=== PATIENT | male | born 1955 | race Caucasian/White ===

== ENCOUNTER 2020-04-03 13:25 | Inpatient (IN) | payer OTHER ==
--- NOTE | 2020-04-03 13:45 | PDOC ---
Rapid Medical Evaluation Time Seen by Provider: 04/03/20 13:40 Medical Evaluation: Allergies Allergy/AdvReac Type Severity Reaction Status Date / Time No Known Allergies Allergy Verified 11/20/15 14:49 04/03/20 13:40 64 year old male HTN, DM, anxiety, CVI, methadone complaining of Left ankle wound with drainage x 2 weeks. Pt banged leg on table 2 weeks ago, area became inflamed with ulceration. No fever, chills, N/V PE: Draining elcer to lateral mal Plan Labs XR Pt to precede to ED for further treatment and care 04/03/20 13:45
--- NOTE | 2020-04-03 14:10 | PDOC ---
History of Present Illness - General Chief Complaint: Wound Stated Complaint: WOUND CARE Time Seen by Provider: 04/03/20 13:40 History Source: Patient Exam Limitations: No Limitations - History of Present Illness Initial Comments: 64M with hx/o HTN, DM, PVD, and methadone use presents to the ED with a wound of left lower leg. He reports bumping a table a 2 weeks ago with development of ulcer 1 week ago. Since then it's become red and drained purulent and clear fluid, and he was concerned of infection. He denied fever, change in strength or sensation, or nausea, vomiting. PCP: Dr. Kinsey PMH: See HPI SH: none Allergies: none Meds: metformin, carvedilol, lisinopril, methadone Soc: neg x3 ROS GENERAL/CONSTITUTIONAL: No fever or chills. No weakness. HEENT: No change in vision. No ear pain or discharge. No sore throat. CARDIOVASCULAR: No chest pain or shortness of breath RESPIRATORY: No cough, wheezing, or hemoptysis. GASTROINTESTINAL: No nausea, vomiting, diarrhea or constipation. GENITOURINARY: No dysuria, frequency, or change in urination. MUSCULOSKELETAL: No joint or muscle swelling or pain. No neck or back pain. SKIN: +leg erythema NEUROLOGIC: No headache, vertigo, loss of consciousness, or change in strength/sensation. ENDOCRINE: No increased thirst. No abnormal weight change HEMATOLOGIC/LYMPHATIC: No anemia, easy bleeding, or history of blood clots. ALLERGIC/IMMUNOLOGIC: No hives or skin allergy. PE GENERAL: Awake, alert, and fully oriented, in no acute distress HEAD: No signs of trauma, normocephalic, atraumatic EYES: PERRLA, EOMI, sclera anicteric, conjunctiva clear ENT: Auricles normal inspection, hearing grossly normal, nares patent, oroph arynx clear without exudates. Moist mucosa NECK: Normal ROM, supple, no lymphadenopathy, JVD, or masses HEART: RRR, normal S1 and S2, no murmurs, rubs or gallops, peripheral pulses normal and equal bilaterally; +2 pitting edema LE bilaterally; 2+ DP LUNGS: No distress, speaks full sentences, clear to auscultation bilaterally ABDOMEN: Soft, nontender, normoactive bowel sounds. No guarding, no rebound. No masses EXTREMITIES: Normal inspection, Normal range of motion, no edema. No clubbing or cyanosis. NEUROLOGICAL: Sensation of left lower leg and foot intact SKIN: venous stasis lower legs bilaterally, left leg erythematous, several small round superficial ulcers with purulence, and surrounding diffuse weeping 04/03/20 15:06 Past History - Medical History Allergies/Adverse Reactions: Allergies Allergy/AdvReac Type Severity Reaction Status Date / Time No Known Allergies Allergy Verified 04/03/20 13:40 Home Medications: Ambulatory Orders Alprazolam [Xanax] 0.5 mg PO PRN PRN 12/15/18 Carvedilol 20 mg PO BID 12/15/18 Citalopram Hydrobromide [Celexa -] 20 mg PO DAILY 12/15/18 Ibuprofen 400 mg PO PRN PRN 12/15/18 Lisinopril 20 mg PO DAILY 12/15/18 Metformin HCl [Glucophage] 500 mg PO BID 12/15/18 Methadone [Dolophine -] 110 mg PO DAILY 12/15/18 Asthma: Yes Diabetes: Yes HTN: Yes - Psycho-Social/Smoking History Smoking History: Never smoked Have you smoked in the past 12 months: No If you are a former smoker, when did you quit?: 2013 Information on smoking cessation initiated: No - Substance Abuse Hx (Audit-C & DAST Scrn) How often the patient has a drink containing alcohol: Never Score: In Men: 4 or > Positive; In Women: 3 or > Positive: 0 Screen Result (Pos requires Nsg. Audit-10AR): Negative In the last yr the pt used illegal drug/Rx for NonMed reason: No Score: Yes response is considered Positive: 0 Screen Result (Positive result requires Nsg. DAST-10): Negative *Physical Exam - Vital Signs Last Vital Signs Temp Pulse Resp BP Pulse Ox 99.3 F 64 16 136/66 96 04/03/20 13:40 04/03/20 13:40 04/03/20 13:40 04/03/20 13:40 04/03/20 13:40 ED Treatment Course - LABORATORY CBC & Chemistry Diagram: 04/03/20 14:20 04/03/20 14:20 Medical Decision Making - Medical Decision Making 64M with hx/o HTN, DM, PVD, and methadone use presents to the ED with a left lower leg ulcers and surrounding erythema. Physical exam revealed venous stasis, a few left leg ulcerations with purulent drainage, extensive erythema beyond affected area of venous stasis. Cellulitis +/- osteomyelitis is high on the differential. Low suspicion for DVT, abscess, or peripheral arterial disease. Bedside ultrasound demonstrated diffuse cobblestoning in LE bilaterally. CBC demonstrated mild leukocytosis at 11.4. CMP unremarkable. Coags unremarkable. Patient was started on IV vancomycin and Zosyn. He was also given IM toradol and tylenol for pain control. Patient will be admitted for management of cellulitis with IV antibiotics. Discharge - Discharge Information Problems reviewed: Yes Clinical Impression/Diagnosis: Cellulitis Qualifiers: Site of cellulitis: extremity Site of cellulitis of extremity: lower extremity Laterality: left Qualified Code(s): L03.116 - Cellulitis of left lower limb Condition: Guarded - Admission Yes - Follow up/Referral Referrals: Mumtaz Kinsey [Primary Care Provider] - - Patient Discharge Instructions - Post Discharge Activity
[2020-04-03 14:39] LABS: BASO % 0.5 % (0-2.0); EOS % 2.3 % (0-4.5); HEMATOCRIT 37.9 % (35.4-49); HEMOGLOBIN 12.5 GM/dL (11.7-16.9); LYMPH % 13.5 % (8-40); MCH 29.4 pg (25.7-33.7); MCHC 32.9 g/dl (32.0-35.9); MEAN CELL VOLUME 89.3 fl (80-96); MEAN PLT VOLUME 7.3 fl (7.5-11.1); MONO % 8.4 % (3.8-10.2); NEUT % 75.3 % (42.8-82.8); PLATELET COUNT 268 K/MM3 (134-434); RBC 4.24 M/mm3 (4.00-5.60); RDW 13.6 % (11.9-15.9); WHITE BLOOD COUNT 11.4 K/mm3 (4.0-10.0)
[2020-04-03 14:47] LABS: INR 1.13 (0.83-1.09); PROTHROMBIN TIME (PATIENT) 13.3 SEC (9.7-13.0)
[2020-04-03 14:49] LABS: ACTIVATED PTT 30.6 SECONDS (25.2-36.5)
[2020-04-03 15:03] LABS: ALBUMIN 3.6 g/dl (3.4-5.0); BILIRUBIN,TOTAL 0.5 mg/dL (0.2-1); BLOOD UREA NITROGEN 10.4 mg/dL (7-18); CALCIUM 8.9 mg/dL (8.5-10.1); CREATININE 0.9 mg/dL (0.55-1.3); POTASSIUM 3.7 mmol/L (3.5-5.1); TOT PROT 7.4 g/dl (6.4-8.2)
[2020-04-03] MEDS ORDERED: PIPERACILLIN/TAZOB 4.5 GM 4.5 GM in DEXTROSE 5%-WATER 100 ML IVPB ONE (15:26)
[2020-04-03] MEDS ORDERED: VANCOMYCIN 1 GM in D5W (PRE-DOCKED) 1,000 MG/250 ML IVPB ONE (15:27)
--- NOTE | 2020-04-03 15:36 | PDOC ---
Documentation entered by Becca Deras SCRIBE, acting as scribe for Augie Espinal MD. Augie Espinal MD: This documentation has been prepared by the Augusta do Xhesika, SCRIBE, under my direction and personally reviewed by me in its entirety. I confirm that the documentation accurately reflects all work, treatment, procedures, and medical decision making performed by me. Attending Attestation - Resident Resident Name: Erik Prieto - ED Attending Attestation I have performed the following: I have examined & evaluated the patient, The case was reviewed & discussed with the resident, I agree w/resident's findings & plan, Exceptions are as noted - HPI HPI: 04/03/20 14:10 The patient is a 64 year old male with a PMH of HTN, DM, anxiety, CVI, methadone who presents to the ED with L leg wound x2 weeks. Pt states he banged leg on table 2 weeks ago, area became inflamed with ulceration x1week ago. The patient denies chest pain, shortness of breath, and dizziness. Denies fever, chills, cough, nausea, vomiting, and constipation. Denies dysuria, frequency, urgency and hematuria. Allergy: NKDA Social: Denies alcohol, cigarette or drug use. PCP: Dr. Kinsey - Physicial Exam PE: 04/03/20 15:35 Vitals: Triage Vital signs reviewed General Appearance: No acute distress, well nourished well developed, Head: Atraumatic, Cardiac: Regular rate and rhythym, no murmurs, no rubs, no gallops, Lungs: Clear to auscultation bilateral, good air movement bilaterally, Abdomen: Soft, non distended, normal bowel sounds, non tender to palpation Extremities: Full range of motion to all extremities, no cyanosis, clubbing, or edema Skin: Weeping cellulitis to left lower extremity right lower extremity with chronic vascular changes Neuro: , strength intact to all extremities, sensation intact to all extremities, Psych: Normal mood, normal affect - Medical Decision Making 04/03/20 15:36 Lower extremity cellulitis diabetic patient will admit for IV antibiotics given extent of disease EKG performed at 1530 demonstrates normal sinus rhythm no ST elevations or T wave inversions Interpreted by me. Discharge - Discharge Information Problems reviewed: Yes Clinical Impression/Diagnosis: Cellulitis Condition: Guarded - Follow up/Referral - Patient Discharge Instructions - Post Discharge Activity
[2020-04-03] MEDS ORDERED: KETOROLAC TROMETHAMINE 60 MG/2 ML VIAL IM ONE (16:16)
[2020-04-03] MEDS ORDERED: ACETAMINOPHEN 325 MG TABLET (FP) PO ONE (16:17)
--- NOTE | 2020-04-03 16:28 | PN ---
Teaching Attending Note Name of Resident: Robert Duffy ATTENDING PHYSICIAN STATEMENT I saw and evaluated the patient. I reviewed the resident's note and discussed the case with the resident. I agree with the resident's findings and plan as documented. SUBJECTIVE: Morbidly obese 64 year old male with known history of DM type 2, PVD, on metha done program (110 mg/ day) who is presenting with 2 day history of severe pain of the LLE. He reports bumping left foot against furniture about 2 weeks ago. He sustained a small wound with increasing erythema, followed by bullous lesions which ruptured over time. There is evidence of drainage and pain became worse prompting him to go to the ED. 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 Diminished sensation bilateral distal lower ext ASSESSMENT AND PLAN: 1. Infected lower extremity wound with cellulitis rule out deep soft tissue infection 2. DM 2 3. morbid obesity 4. PVD 5. Opioid (methadone) dependent 6. DVT prophylaxis - antibiotics - ID and surgery consultation - CT lower ext - culture - confirm methadone dosage at [facility]. Last dose this am -DVT prophylaxis DW Dr Duffy and agree with management, plans of care
[2020-04-03] MEDS ORDERED: ACETAMINOPHEN 325 MG TABLET (FP) ONE (16:47)
[2020-04-03] MEDS ORDERED: VANCOMYCIN 1 GRAM (PRE-DOCKED) 1,000 MG/250 ML BAG IVPB ONE (16:47)
[2020-04-03] MEDS ORDERED: KETOROLAC TROMETHAMINE 60 MG/2 ML VIAL ONE (16:47)
[2020-04-03] MEDS ORDERED: PIPERACILLIN/TAZOB 4.5 GM 4.5 GM/100 ML BAG IVPB ONE (16:47)
[2020-04-03] MEDS: SODIUM CHLORIDE 1,000 ML IV SCH (17:15)
[2020-04-03] MEDS ORDERED: LISINOPRIL 20 MG TABLET (FP) ONE (17:18)
[2020-04-03] MEDS: LISINOPRIL 20 MG TABLET (FP) PO SCH (17:23)
--- NOTE | 2020-04-03 18:51 | HP ---
CHIEF COMPLAINT: left leg pain PCP: Dr. Kinsey Vascular: Dr. Gonzalez Wound Care: Dr. Cordova HISTORY OF PRESENT ILLNESS: 64 y/o M, pmh of HTN, DM, PVD, substance abuse/Heroin-Nasal on methadone, presents to the ED c/o of left leg pain, skin changes, erythema, clear purulent discharge of 2 weeks duration that started off as a mild skin changes and worsened since onset. Pt reports that he has had chronic venous changes of the leg, but this is different and is associated with severe pain and tenderness. Pt reports that he used to follow up with Dr. 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 He denies f/c/n/v/d/sob/chest pain, numbness and tingling, loss strength, headaches. ER course was notable for: (1) vanc and zosyn given (2) (3) Recent Travel: none PAST MEDICAL HISTORY: HTN, DM, PVD, substance abuse/Heroin-Nasal on methadone PAST SURGICAL HISTORY: none FHx: Father : heart disease, suspicious mass in the abdomen- unknown dx Social History: Smoking:denies Alcohol:denies Drugs: heroin user on methadone Allergies No Known Allergies Allergy (Verified 04/03/20 13:40) HOME MEDICATIONS: Home Medications Medication Instructions Recorded Alprazolam [Xanax] 0.5 mg PO PRN PRN 12/15/18 Carvedilol 20 mg PO BID 12/15/18 Citalopram Hydrobromide [Celexa -] 20 mg PO DAILY 12/15/18 Ibuprofen 400 mg PO PRN PRN 12/15/18 Lisinopril 20 mg PO DAILY 12/15/18 Metformin HCl [Glucophage] 500 mg PO BID 12/15/18 Methadone [Dolophine -] 110 mg PO DAILY 12/15/18 Carvedilol [Coreg -] 12.5 mg PO BID 04/03/20 Furosemide [Lasix] 20 mg PO DAILY 04/03/20 REVIEW OF SYSTEMS CONSTITUTIONAL: Absent: fever, chills, diaphoresis, generalized weakness, malaise HEENT: Absent: rhinorrhea, nasal congestion Absent: chest pain, syncope, palpitations, peripheral edema RESPIRATORY: Absent: cough, shortness of breath, dyspnea with exertion, orthopnea, wheezing, stridor, hemoptysis GASTROINTESTINAL: Absent: abdominal pain, abdominal distension, nausea, vomiting, diarrhea, constipation GENITOURINARY: Absent: dysuria, frequency, urgency, genital pain SKIN: Admits: Redness of the left leg Absent: rash, itching, pallor HEMATOLOGIC/IMMUNOLOGIC: Absent: easy bleeding, easy bruising, lymphadenopathy, frequent infections NEUROLOGIC: Absent: headache, focal weakness or paresthesias, dizziness, unsteady gait, seizure, mental status changes, bladder or bowel incontinence PSYCHIATRIC: Absent: anxiety, depression, suicidal or homicidal ideation, hallucinations. PHYSICAL EXAMINATION Vital Signs - 24 hr 04/03/20 04/03/20 13:40 17:31 Temperature 99.3 F 99.0 F Pulse Rate 64 Pulse Rate [ 65 Apical] Respiratory 16 19 Rate Blood Pressure 136/66 Blood Pressure 129/68 [Right Arm] O2 Sat by Pulse 96 100 Oximetry (%) GENERAL: Awake, alert, and fully oriented, in no acute distress. EYES: Pupils equal, round and reactive to light, extraocular movements intact, No lid lag. EARS, NOSE, THROAT: Moist mucous membranes. NECK: Normal range of motion, supple without lymphadenopathy, JVD, or masses. LUNGS: Breath sounds equal, clear to auscultation bilaterally. No wheezes, and no crackles. HEART: Regular rate and rhythm, normal S1 and S2 without murmur, rub or gallop. ABDOMEN: Soft, nontender, not distended, normoactive bowel sounds, no guarding, no rebound, no masses. MUSCULOSKELETAL: Normal range of motion at all joints. LOWER EXTREMITIES: 2+ pulses, warm, well-perfused. Left lower extremity with rubor, erythema, tenderness, extending from ankle to below the knee, with skin break down, blistering and clear discharge. NEUROLOGICAL: Normal speech. Normal gait. PSYCHIATRIC: Cooperative. Good eye contact. Appropriate mood and affect. Laboratory Results - last 24 hr 04/03/20 04/03/20 04/03/20 14:20 14:20 14:20 WBC 11.4 H RBC 4.24 Hgb 12.5 Hct 37.9 MCV 89.3 MCH 29.4 MCHC 32.9 RDW 13.6 Plt Count 268 D MPV 7.3 L D Absolute Neuts (auto) 8.6 H Neutrophils % 75.3 Lymphocytes % 13.5 Monocytes % 8.4 Eosinophils % 2.3 Basophils % 0.5 Nucleated RBC % 0 PT with INR 13.30 H INR 1.13 H PTT (Actin FS) 30.6 Sodium 141 Potassium 3.7 Chloride 104 Carbon Dioxide 30 Anion Gap 6 L BUN 10.4 Creatinine 0.9 Est GFR (CKD-EPI)AfAm 105.72 Est GFR (CKD-EPI)NonAf 91.22 POC Glucometer Random Glucose 141 H Lactic Acid Calcium 8.9 Total Bilirubin 0.5 AST 17 ALT 22 Alkaline Phosphatase 64 Total Protein 7.4 Albumin 3.6 Beta-Hydroxybutyrate 0.5 ASSESSMENT/PLAN: 64 y/o M, pmh of HTN, DM, PVD, substance abuse/Heroin-Nasal on methadone, prese nts to the ED c/o of left leg pain, skin changes, erythema, clear purulent discharge of 2 weeks duration that started off as a mild skin changes and worsened since onset admitted for Cellulitis of the the LLE #Cellulitis of the the LLE MARA pain/tenderness/erythema due to diabetes, PVD, inadequate follow up CT LE ordered to r/o deep tissue infection in setting of leukocytosis ankle X rays, LLE x ray LDH f/u CXR s/p Vanc and Zosyn IVF Consulted Dr. Gonzalez/ vascular Consulted ID- Dr. Smart Consider consult for podiatry as pt needs foot care/ Dr. Cordova Pain control with Tylenol and motrin #Substance abuse Will need to verify Methadone, unable to do so Methadone 110 mg #PVD vascular consulted stable #HTN cont home meds lisinopril + Coreg #DM BGM ISS #Obesity with LE edema lasix 20- will need to reconcile with pharmacy attempted to call, unable to reach due to pharmacy being closed #DVT ppx hep sq FEN monitor lytes IVF Dm/Sodium diet Disp: f/u ID, cont abx in the morning, f/u vascular Visit type - Emergency Visit Emergency Visit: Yes ED Registration Date: 04/03/20 Care time: The patient presented to the Emergency Department on the above date and was hospitalized for further evaluation of their emergent condition. - New Patient This patient is new to me today: Yes Date on this admission: 04/11/20 - Critical Care Critical Care patient: No ATTENDING PHYSICIAN STATEMENT I saw and evaluated the patient. I reviewed the resident's note and discussed the case with the resident. I agree with the resident's findings and plan as documented. SUBJECTIVE: OBJECTIVE: ASSESSMENT AND PLAN:
[2020-04-03 23:47] VITALS: BMI 42.5
[2020-04-04] MEDS: INSULIN SLIDING SCALE (NOVOLOG) 1 VIAL SQ SCH ×5 (00:27→21:50)
[2020-04-04] MEDS: CARVEDILOL 12.5 MG TABLET (FP) PO SCH ×3 (00:27→21:53)
[2020-04-04] MEDS: HEPARIN NA (PORCINE) 5,000 UNITS/ML 1ML VIAL SQ SCH ×4 (00:27→21:51)
[2020-04-04 07:45] LABS: BASO % 0.6 % (0-2.0); EOS % 3.8 % (0-4.5); HEMATOCRIT 37.5 % (35.4-49); HEMOGLOBIN 12.2 GM/dL (11.7-16.9); LYMPH % 16.7 % (8-40); MCH 28.9 pg (25.7-33.7); MCHC 32.4 g/dl (32.0-35.9); MEAN CELL VOLUME 89.2 fl (80-96); MEAN PLT VOLUME 7.6 fl (7.5-11.1); MONO % 11.1 % (3.8-10.2); NEUT % 67.8 % (42.8-82.8); PLATELET COUNT 234 K/MM3 (134-434); RDW 13.4 % (11.9-15.9); WHITE BLOOD COUNT 9.6 K/mm3 (4.0-10.0)
[2020-04-04 08:12] LABS: ALBUMIN 3.1 g/dl (3.4-5.0); BILIRUBIN,TOTAL 0.7 mg/dL (0.2-1); BLOOD UREA NITROGEN 9.4 mg/dL (7-18); CALCIUM 8.3 mg/dL (8.5-10.1); CREATININE 0.8 mg/dL (0.55-1.3); MAGNESIUM 2.5 mg/dL (1.8-2.4); PHOSPHOROUS 3.7 mg/dL (2.5-4.9); POTASSIUM 4.2 mmol/L (3.5-5.1); TOT PROT 6.4 g/dl (6.4-8.2)
[2020-04-04] MEDS ORDERED: METHADONE HCL 10 MG TABLET PO ONE (08:54)
[2020-04-04] MEDS ORDERED: METHADONE HCL 10 MG TABLET ONE (09:23)
[2020-04-04] MEDS ORDERED: METHADONE HCL 40 MG DISPERSABLE TABLET ONE (09:23)
[2020-04-04] MEDS: LISINOPRIL 20 MG TABLET (FP) PO SCH (09:34)
[2020-04-04] MEDS: METHADONE 80 MG, METHADONE 30 MG PO SCH (09:34)
--- NOTE | 2020-04-04 11:17 | EKG ---
Test Reason : Blood Pressure : / mmHG Vent. Rate : 056 BPM Atrial Rate : 056 BPM P-R Int : 212 ms QRS Dur : 100 ms QT Int : 468 ms P-R-T Axes : 011 -01 004 degrees QTc Int : 451 ms SINUS BRADYCARDIA WITH 1ST DEGREE A-V BLOCK MINIMAL VOLTAGE CRITERIA FOR LVH, MAY BE NORMAL VARIANT NO PREVIOUS ECGS AVAILABLE Confirmed by MYRON ORTIZ MD ([id number]) on 04/04/2020 11:16:55 AM Referred By: Confirmed By:MYRON ORTIZ MD
--- NOTE | 2020-04-04 11:24 | CON.ID ---
Consult Consult Specialty:: infectious diseases Referred by:: Reason for Consultation:: cellulitis of the leg - History of Present Illness Chief Complaint: swelling and cellulitis of the leg History of Present Illness: 64M with hx/o HTN, DM, PVD, and methadone use presents to the ED with a wound of left lower leg. He reports bumping a table a 2 weeks ago with development of ulcer 1 week ago. Since then it's become red and drained purulent and clear fluid, and he was concerned of infection. He denied fever, change in strength or sensation, or nausea, vomiting. - History Source History Provided By: Patient Limitations to Obtaining History: No Limitations - Smoking History Smoking history: Never smoked Have you smoked in the past 12 months: No If you are a former smoker, when did you quit?: 2013 Home Medications - Allergies Allergies/Adverse Reactions: Allergies Allergy/AdvReac Type Severity Reaction Status Date / Time No Known Allergies Allergy Verified 04/03/20 13:40 - Home Medications Home Medications: Ambulatory Orders Alprazolam [Xanax] 0.5 mg PO PRN PRN 12/15/18 Carvedilol 12.5 mg PO BID 12/15/18 Citalopram Hydrobromide [Celexa -] 20 mg PO DAILY 12/15/18 Ibuprofen 400 mg PO PRN PRN 12/15/18 Lisinopril 20 mg PO DAILY 12/15/18 Metformin HCl [Glucophage] 500 mg PO BID 12/15/18 Methadone [Dolophine -] 110 mg PO DAILY 12/15/18 Carvedilol [Coreg -] 12.5 mg PO BID 04/03/20 Furosemide [Lasix] 20 mg PO DAILY 04/03/20 Review of Systems - Review of Systems Constitutional: reports: No Symptoms Eyes: reports: No Symptoms HENT: reports: No Symptoms Neck: reports: No Symptoms Cardiovascular: reports: No Symptoms Respiratory: reports: No Symptoms Gastrointestinal: reports: No Symptoms Genitourinary: reports: No Symptoms Musculoskeletal: reports: Muscle Pain Integumentary: reports: Change in Color, Erythema, Other (discharge) Neurological: reports: No Symptoms Endocrine: reports: No Symptoms Hematology/Lymphatic: reports: No Symptoms Psychiatric: reports: No Symptoms Physical Exam Vital Signs: Vital Signs Temperature 97.9 F 04/04/20 05:55 Pulse Rate 58 L 04/04/20 05:55 Respiratory Rate 20 04/04/20 05:55 Blood Pressure 146/76 04/04/20 05:55 O2 Sat by Pulse Oximetry (%) 97 04/04/20 05:55 Constitutional: Yes: Well Nourished, Calm, Obese Eyes: Yes: Conjunctiva Clear HENT: Yes: Atraumatic, Normocephalic Neck: Yes: Supple, Trachea Midline Cardiovascular: Yes: Regular Rate and Rhythm Respiratory: Yes: Regular, CTA Bilaterally Gastrointestinal: Yes: Normal Bowel Sounds, Soft Musculoskeletal: Yes: WNL Extremities: Yes: Erythema, Other Integumentary: Yes: Erythema, Other Wound/Incision: Yes: Dressing Dry and Intact Neurological: Yes: Alert, Oriented Labs: CBC, BMP 04/04/20 06:45 04/04/20 06:45 Imaging - Results Chest X-ray: Report Reviewed, Image Reviewed X-ray: Report Reviewed, Image Reviewed Assessment/Plan this obese patient coming in with cellulitis of the leg post injury i ahave started patient on zosyn if drainage continues please send cx from the wound continue wound care consider wound care to get involved
--- NOTE | 2020-04-04 11:40 | PN ---
Physical Exam: SUBJECTIVE: Patient seen and examined at the bedside. denies leg pain. OBJECTIVE: wound culture ordered ---- Patient is a 64 year male with a significant past medical history of HTN, DM, PVD, substance abuse/Heroin-Nasal on methadone, presents to the ED c/o of left leg pain, skin changes, erythema, clear purulent discharge of 2 weeks duration that started off as a mild skin changes and worsened since onset. Patient is being treated for left leg celluitis. a culture of this wound has been sent. blood cultures pending. covid status: pending Vital Signs Period Temp Pulse Resp BP Sys/[place] Pulse Ox Last 24 Hr 97.9 F-99.3 F 58-65 16-20 123-146/66-76 95-100 GENERAL: The patient is awake, alert, and fully oriented, in no acute distress. disheveled HEAD: Normal with no signs of trauma. EYES: PERRL, extraocular movements intact, sclera anicteric, conjunctiva clear. No ptosis. ENT: Ears normal, nares patent, oropharynx clear without exudates, moist mucous membranes. NECK: Trachea midline, full range of motion, supple. LUNGS: Breath sounds equal, clear to auscultation bilaterally HEART: Regular rate and rhythm ABDOMEN: obese abdomen, soft EXTREMITIES: hyperpigmentation of right lower ext. left lower ext with c/d/i dressing NEUROLOGICAL: Normal speech, gait not observed. PSYCH: Normal mood, normal affect. Laboratory Results - last 24 hr 04/03/20 04/03/20 04/03/20 14:20 14:20 14:20 WBC 11.4 H RBC 4.24 Hgb 12.5 Hct 37.9 MCV 89.3 MCH 29.4 MCHC 32.9 RDW 13.6 Plt Count 268 D MPV 7.3 L D Absolute Neuts (auto) 8.6 H Neutrophils % 75.3 Lymphocytes % 13.5 Monocytes % 8.4 Eosinophils % 2.3 Basophils % 0.5 Nucleated RBC % 0 PT with INR 13.30 H INR 1.13 H PTT (Actin FS) 30.6 Sodium 141 Potassium 3.7 Chloride 104 Carbon Dioxide 30 Anion Gap 6 L BUN 10.4 Creatinine 0.9 Est GFR (CKD-EPI)AfAm 105.72 Est GFR (CKD-EPI)NonAf 91.22 POC Glucometer Random Glucose 141 H Lactic Acid Calcium 8.9 Phosphorus Magnesium Total Bilirubin 0.5 AST 17 ALT 22 Alkaline Phosphatase 64 Total Protein 7.4 Albumin 3.6 Beta-Hydroxybutyrate 0.5 04/03/20 04/03/20 04/04/20 17:15 17:21 00:08 WBC RBC Hgb Hct MCV MCH MCHC RDW Plt Count MPV Absolute Neuts (auto) Neutrophils % Lymphocytes % Monocytes % Eosinophils % Basophils % Nucleated RBC % PT with INR INR PTT (Actin FS) Sodium Potassium Chloride Carbon Dioxide Anion Gap BUN Creatinine Est GFR (CKD-EPI)AfAm Est GFR (CKD-EPI)NonAf POC Glucometer 84 87 Random Glucose Lactic Acid 1.1 Calcium Phosphorus Magnesium Total Bilirubin AST ALT Alkaline Phosphatase Total Protein Albumin Beta-Hydroxybutyrate 04/04/20 04/04/20 04/04/20 05:27 06:45 06:45 WBC 9.6 RBC 4.20 Hgb 12.2 Hct 37.5 MCV 89.2 MCH 28.9 MCHC 32.4 RDW 13.4 Plt Count 234 MPV 7.6 Absolute Neuts (auto) 6.5 Neutrophils % 67.8 Lymphocytes % 16.7 D Monocytes % 11.1 H Eosinophils % 3.8 Basophils % 0.6 Nucleated RBC % 0 PT with INR INR PTT (Actin FS) Sodium 141 Potassium 4.2 Chloride 105 Carbon Dioxide 30 Anion Gap 6 L BUN 9.4 Creatinine 0.8 Est GFR (CKD-EPI)AfAm 110.96 Est GFR (CKD-EPI)NonAf 95.74 POC Glucometer 106 Random Glucose 110 H Lactic Acid Calcium 8.3 L Phosphorus 3.7 Magnesium 2.5 H Total Bilirubin 0.7 AST 13 L ALT 21 Alkaline Phosphatase 55 Total Protein 6.4 Albumin 3.1 L Beta-Hydroxybutyrate Active Medications Generic Name Dose Route Start Last Admin Trade Name Freq PRN Reason Stop Dose Admin Carvedilol 12.5 mg 04/03/20 22:00 04/04/20 09:34 Coreg - PO 12.5 mg BID JACQUELYN Administration Heparin Sodium (Porcine) 5,000 unit 04/03/20 22:00 04/04/20 05:37 Heparin - SQ Not Given TID JACQUELYN Sodium Chloride 1,000 mls @ 42 mls/hr 04/03/20 17:00 04/03/20 17:15 Normal Saline - IV 42 mls/hr ASDIR JACQUELYN Administration Piperacillin Sod/Tazobactam 50 mls @ 100 mls/hr 04/04/20 11:45 Sod 3.375 gm/ Dextrose IVPB Q8H-IV JACQUELYN Protocol Insulin Aspart 1 vial 04/03/20 22:00 04/04/20 11:37 Novolog Vial Sliding Scale - SQ Not Given ACHS JACQUELYN Protocol Lisinopril 20 mg 04/03/20 17:15 04/04/20 09:34 Prinivil PO 20 mg DAILY JACQUELYN Administration Methadone HCl 80 mg/ Methadone 110 mg 04/04/20 09:00 04/04/20 09:34 HCl 30 mg PO 110 mg DAILY@0600 JACQUELYN Administration ASSESSMENT/PLAN: Problem List - Problems (1) Cellulitis Assessment/Plan: blood cultures pending on zosyn wound culture sent/pending monitor drainage daily dressing lower ext ct noted Code(s): L03.90 - CELLULITIS, UNSPECIFIED Qualifiers: Site of cellulitis: extremity Site of cellulitis of extremity: lower extremity Laterality: left Qualified Code(s): L03.116 - Cellulitis of left lower limb (2) Diabetes Assessment/Plan: monitor bgms, on novolog sliding scale, hmga1c pending Code(s): E11.9 - TYPE 2 DIABETES MELLITUS WITHOUT COMPLICATIONS (3) Methadone dependence Assessment/Plan: continue methadone maintenance. 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 - New Patient This patient is new to me today: Yes Date on this admission: 04/04/20 - Critical Care Critical Care patient: No - Discharge Referral Referred to [facility] No
--- NOTE | 2020-04-04 12:24 | CONSULT ---
- Consultation REQUESTING PROVIDER: CONSULT REQUEST: We have been asked to surgically evaluate this patient for LLE cellulitis and wounds PCP:Kj Frey NP HISTORY OF PRESENT ILLNESS: 64yo M with h/o LLE cellulitis and venous stasis wounds was consulted to Vascular for evaluation. Pt states he has a long history of LLE wounds and was going to [facility] wound care center until a few months ago. Pt states that he noticed his leg was draining a couple weeks ago, but started to get red and tender a few days ago so he went to the hospital. Pt denies fever, chills, n/v. PMHx: HTN, DM, PVD, substance abuse/Heroin-Nasal on methadone Home Medications Medication Instructions Recorded Alprazolam [Xanax] 0.5 mg PO PRN PRN 12/15/18 Carvedilol 12.5 mg PO BID 12/15/18 Citalopram Hydrobromide [Celexa -] 20 mg PO DAILY 12/15/18 Ibuprofen 400 mg PO PRN PRN 12/15/18 Lisinopril 20 mg PO DAILY 12/15/18 Metformin HCl [Glucophage] 500 mg PO BID 12/15/18 Methadone [Dolophine -] 110 mg PO DAILY 12/15/18 Carvedilol [Coreg -] 12.5 mg PO BID 04/03/20 Furosemide [Lasix] 20 mg PO DAILY 04/03/20 Allergies Allergy/AdvReac Type Severity Reaction Status Date / Time No Known Allergies Allergy Verified 04/03/20 13:40 REVIEW OF SYSTEMS: CONSTITUTIONAL: Absent: fever, chills, diaphoresis, generalized weakness, malaise, loss of appetite, weight change PHYSICAL EXAM: GENERAL: Awake, alert, and fully oriented, in no acute distress. HEAD: Normal with no signs of trauma. EYES: PERRL, sclera anicteric, conjunctiva clear. NECK: Normal ROM, supple without lymphadenopathy, JVD, or masses. LUNGS: breathing comfortably, No accessory muscle use. HEART: Regular rate and rhythm. MUSCULOSKELETAL: Normal ROM at all joints. No bony deformities or tenderness. No CVA tenderness. UPPER EXTREMITIES: warm, well-perfused. No cyanosis. No peripheral edema. LOWER EXTREMITIES: 2+ pulses, warm, well-perfused. No calf tenderness. +1 peripheral edema. LLE shows multiple superficial scattered ulcers circumferential with erythema and serous drainage. NEUROLOGICAL: Normal speech, gait not observed. PSYCH: Cooperative. Good eye contact. Appropriate mood and affect. SKIN: Warm, dry, normal turgor, no rashes or lesions noted. Vital Signs Temperature 97.9 F 04/04/20 05:55 Pulse Rate 58 L 04/04/20 05:55 Respiratory Rate 20 04/04/20 05:55 Blood Pressure 146/76 04/04/20 05:55 O2 Sat by Pulse Oximetry (%) 97 04/04/20 05:55 Lab Results WBC 9.6 K/mm3 (4.0-10.0) 04/04/20 06:45 RBC 4.20 M/mm3 (4.00-5.60) 04/04/20 06:45 Hgb 12.2 GM/dL (11.7-16.9) 04/04/20 06:45 Hct 37.5 % (35.4-49) 04/04/20 06:45 MCV 89.2 fl (80-96) 04/04/20 06:45 MCHC 32.4 g/dl (32.0-35.9) 04/04/20 06:45 RDW 13.4 % (11.9-15.9) 04/04/20 06:45 Plt Count 234 K/MM3 (134-434) 04/04/20 06:45 INR 1.13 (0.83-1.09) H 04/03/20 14:20 Sodium 141 mmol/L (136-145) 04/04/20 06:45 Potassium 4.2 mmol/L (3.5-5.1) 04/04/20 06:45 Chloride 105 mmol/L (98-107) 04/04/20 06:45 Carbon Dioxide 30 mmol/L (21-32) 04/04/20 06:45 Anion Gap 6 MMOL/L (8-16) L 04/04/20 06:45 BUN 9.4 mg/dL (7-18) 04/04/20 06:45 Creatinine 0.8 mg/dL (0.55-1.3) 04/04/20 06:45 Random Glucose 110 mg/dL (74-106) H 04/04/20 06:45 Calcium 8.3 mg/dL (8.5-10.1) L 04/04/20 06:45 Problem List - Problems (1) Cellulitis Assessment/Plan: Cellulitis Plan -daily dressing changes with Ca aginate and kerlex -Continue antibiotics per ID/medical team -Elevate the lower extremity above the level of the heart at all times while at rest -Bilateral compression with jillian wraps once cellulitis has receded (wrap from metacarpal heads to below knee) -[place]ome[place] soaks QD (astringent for pruritus) -Apply Lac hydrin daily (for dry scaly skin) Code(s): L03.90 - CELLULITIS, UNSPECIFIED Qualifiers: Site of cellulitis: extremity Site of cellulitis of extremity: lower extremity Laterality: left Qualified Code(s): L03.116 - Cellulitis of left lower limb
[2020-04-04] MEDS ORDERED: PIPERACILLIN/TAZOBACTAM 3.375 GM VIAL IVPB ONE ×2 (12:52→18:21)
[2020-04-04] MEDS ORDERED: DEXTROSE 5%-WATER - 50 ML IVPB ONE ×2 (12:52→18:22)
[2020-04-04] MEDS: PIPERACILLIN/TAZOB 3.375 GM 3.375 GM in DEXTROSE 5%-WATER - 50 ML IVPB SCH ×2 (13:20→18:29)
[2020-04-04] MEDS: SODIUM CHLORIDE 1,000 ML IV SCH (21:50)
[2020-04-05] MEDS ORDERED: PIPERACILLIN/TAZOBACTAM 3.375 GM VIAL IVPB ONE ×3 (01:08→17:05)
[2020-04-05] MEDS ORDERED: DEXTROSE 5%-WATER - 50 ML IVPB ONE ×3 (01:08→17:05)
[2020-04-05] MEDS: PIPERACILLIN/TAZOB 3.375 GM 3.375 GM in DEXTROSE 5%-WATER - 50 ML IVPB SCH ×3 (02:00→18:15)
[2020-04-05] MEDS ORDERED: METHADONE HCL 10 MG TABLET ONE (05:17)
[2020-04-05] MEDS ORDERED: METHADONE HCL 40 MG DISPERSABLE TABLET ONE (05:17)
[2020-04-05] MEDS: METHADONE 80 MG, METHADONE 30 MG PO SCH (05:42)
[2020-04-05] MEDS: HEPARIN NA (PORCINE) 5,000 UNITS/ML 1ML VIAL SQ SCH ×3 (05:42→21:37)
[2020-04-05] MEDS ORDERED: METHADONE HCL 10 MG TABLET PO SCH (06:00)
[2020-04-05] MEDS: INSULIN SLIDING SCALE (NOVOLOG) 1 VIAL SQ SCH ×4 (06:03→21:37)
[2020-04-05 08:27] LABS: BASO % 0.2 % (0-2.0); EOS % 3.2 % (0-4.5); HEMATOCRIT 39.3 % (35.4-49); MCH 29.7 pg (25.7-33.7); MEAN CELL VOLUME 89.8 fl (80-96); MEAN PLT VOLUME 8.1 fl (7.5-11.1); MONO % 9.8 % (3.8-10.2); NEUT % 66.8 % (42.8-82.8); PLATELET COUNT 256 K/MM3 (134-434); RBC 4.38 M/mm3 (4.00-5.60); RDW 13.6 % (11.9-15.9); WHITE BLOOD COUNT 8.8 K/mm3 (4.0-10.0)
--- NOTE | 2020-04-05 08:41 | PN ---
Progress Note, Physician Chief Complaint: doing well, nad , pain is significantly decreased - Current Medication List Current Medications: Active Medications Carvedilol (Coreg -) 12.5 mg PO BID [facility] Last Admin: 04/04/20 21:53 Dose: Not Given Documented by: Heparin Sodium (Porcine) (Heparin -) 5,000 unit SQ TID [facility] Last Admin: 04/05/20 05:42 Dose: 5,000 unit Documented by: Sodium Chloride (Normal Saline -) 1,000 mls @ 42 mls/hr IV ASDIR [facility] Last Admin: 04/04/20 21:50 Dose: 42 mls/hr Documented by: Piperacillin Sod/Tazobactam (Sod 3.375 gm/ Dextrose) 50 mls @ 100 mls/hr IVPB Q8H-IV [facility]; Protocol Last Admin: 04/05/20 02:00 Dose: 100 mls/hr Documented by: Insulin Aspart (Novolog Vial Sliding Scale -) 1 vial SQ ACHS [facility]; Protocol Last Admin: 04/05/20 06:03 Dose: Not Given Documented by: Lisinopril (Prinivil) 20 mg PO DAILY [facility] Last Admin: 04/04/20 09:34 Dose: 20 mg Documented by: Methadone HCl 80 mg/ Methadone (HCl 30 mg) 110 mg PO DAILY@0600 [facility] Last Admin: 04/05/20 05:42 Dose: 110 mg Documented by: - Objective Vital Signs: Vital Signs Temperature 98.5 F 04/05/20 05:30 Pulse Rate 62 04/05/20 05:30 Respiratory Rate 18 04/05/20 05:30 Blood Pressure 150/80 04/05/20 05:30 O2 Sat by Pulse Oximetry (%) 96 04/05/20 05:30 Constitutional: Yes: Well Nourished, No Distress, Calm Eyes: Yes: Conjunctiva Clear, EOM Intact HENT: Yes: Atraumatic, Normocephalic Neck: Yes: Supple, Trachea Midline Cardiovascular: Yes: Regular Rate and Rhythm Respiratory: Yes: Regular, CTA Bilaterally Gastrointestinal: Yes: Normal Bowel Sounds, Soft Extremities: Yes: Other ( hyperpigmentation of right lower ext. left lower ext with c/d/i dressing) Edema: LLE: Trace, RLE: Trace Neurological: Yes: WNL, Alert, Oriented Labs: CBC, BMP 04/05/20 08:05 INR, PTT INR 1.13 (0.83-1.09) H 04/03/20 14:20 Impression/Plan Impression/Plan: - Problems (1) CellulitisLLE Assessment/Plan: blood cultures negative, woind c&S pending on zosyn monitor drainage daily dressing (2) Diabetes Assessment/Plan: monitor bgms, on novolog sliding scale, hmga1c 7.1 continue current managaement, (3) Methadone dependence Assessment/Plan: continue methadone maintenance. (4) Morbid obesity needs low calorie diet and lifestyle modification (5) DVT prophylaxis Assessment/Plan: heparin tid Visit type - Emergency Visit Emergency Visit: No - New Patient This patient is new to me today: Yes Date on this admission: 04/05/20 - Critical Care Critical Care patient: No - Discharge Referral Referred to [facility] Med [facility].C.: No Labs Lab Results: CBCD WBC 8.8 K/mm3 (4.0-10.0) 04/05/20 08:05 RBC 4.38 M/mm3 (4.00-5.60) 04/05/20 08:05 Hgb 13.0 GM/dL (11.7-16.9) 04/05/20 08:05 Hct 39.3 % (35.4-49) 04/05/20 08:05 MCV 89.8 fl (80-96) 04/05/20 08:05 MCHC 33.0 g/dl (32.0-35.9) 04/05/20 08:05 RDW 13.6 % (11.9-15.9) 04/05/20 08:05 Plt Count 256 K/MM3 (134-434) 04/05/20 08:05 MPV 8.1 fl (7.5-11.1) 04/05/20 08:05 CMP Sodium 140 mmol/L (136-145) 04/05/20 08:05 Potassium 4.0 mmol/L (3.5-5.1) 04/05/20 08:05 Chloride 106 mmol/L (98-107) 04/05/20 08:05 Carbon Dioxide 30 mmol/L (21-32) 04/05/20 08:05 Anion Gap 4 MMOL/L (8-16) L 04/05/20 08:05 BUN 8.8 mg/dL (7-18) 04/05/20 08:05 Creatinine 0.8 mg/dL (0.55-1.3) 04/05/20 08:05 Random Glucose 109 mg/dL (74-106) H 04/05/20 08:05 Calcium 8.7 mg/dL (8.5-10.1) 04/05/20 08:05 Total Bilirubin 0.6 mg/dL (0.2-1) 04/05/20 08:05 AST 32 U/L (15-37) 04/05/20 08:05 ALT 30 U/L (13-61) 04/05/20 08:05 Alkaline Phosphatase 62 U/L (45-117) 04/05/20 08:05 Total Protein 7.1 g/dl (6.4-8.2) 04/05/20 08:05 Albumin 3.3 g/dl (3.4-5.0) L 04/05/20 08:05 Laboratory Results - last 24 hr 04/03/20 04/04/20 04/04/20 14:13 06:45 11:37 WBC RBC Hgb Hct MCV MCH MCHC RDW Plt Count MPV Absolute Neuts (auto) Neutrophils % Lymphocytes % Monocytes % Eosinophils % Basophils % Nucleated RBC % Sodium Potassium Chloride Carbon Dioxide Anion Gap BUN Creatinine Est GFR (CKD-EPI)AfAm Est GFR (CKD-EPI)NonAf POC Glucometer 117 Random Glucose Hemoglobin A1c % 7.1 H Calcium Magnesium Total Bilirubin AST ALT Alkaline Phosphatase Total Protein Albumin COVID-19 (ROBLES) Not detected 04/04/20 04/04/20 04/05/20 17:06 21:43 05:44 WBC RBC Hgb Hct MCV MCH MCHC RDW Plt Count MPV Absolute Neuts (auto) Neutrophils % Lymphocytes % Monocytes % Eosinophils % Basophils % Nucleated RBC % Sodium Potassium Chloride Carbon Dioxide Anion Gap BUN Creatinine Est GFR (CKD-EPI)AfAm Est GFR (CKD-EPI)NonAf POC Glucometer 189 99 103 Random Glucose Hemoglobin A1c % Calcium Magnesium Total Bilirubin AST ALT Alkaline Phosphatase Total Protein Albumin COVID-19 (ROBLES) 04/05/20 04/05/20 08:05 08:05 WBC 8.8 RBC 4.38 Hgb 13.0 Hct 39.3 MCV 89.8 MCH 29.7 MCHC 33.0 RDW 13.6 Plt Count 256 MPV 8.1 Absolute Neuts (auto) 5.9 Neutrophils % 66.8 Lymphocytes % 20.0 Monocytes % 9.8 Eosinophils % 3.2 Basophils % 0.2 Nucleated RBC % 0 Sodium 140 Potassium 4.0 Chloride 106 Carbon Dioxide 30 Anion Gap 4 L BUN 8.8 Creatinine 0.8 Est GFR (CKD-EPI)AfAm 110.96 Est GFR (CKD-EPI)NonAf 95.74 POC Glucometer Random Glucose 109 H Hemoglobin A1c % Calcium 8.7 Magnesium 2.5 H Total Bilirubin 0.6 AST 32 ALT 30 Alkaline Phosphatase 62 Total Protein 7.1 Albumin 3.3 L COVID-19 (ROBLES)
[2020-04-05 08:46] LABS: ALBUMIN 3.3 g/dl (3.4-5.0); BILIRUBIN,TOTAL 0.6 mg/dL (0.2-1); BLOOD UREA NITROGEN 8.8 mg/dL (7-18); CALCIUM 8.7 mg/dL (8.5-10.1); CREATININE 0.8 mg/dL (0.55-1.3); MAGNESIUM 2.5 mg/dL (1.8-2.4); TOT PROT 7.1 g/dl (6.4-8.2)
[2020-04-05] MEDS: LISINOPRIL 20 MG TABLET (FP) PO SCH (09:03)
[2020-04-05] MEDS: CARVEDILOL 12.5 MG TABLET (FP) PO SCH ×2 (09:03→21:37)
--- NOTE | 2020-04-05 10:22 | PN ---
Progress Note, Physician History of Present Illness: stable no new issues - Current Medication List Current Medications: Active Medications Carvedilol (Coreg -) 12.5 mg PO BID [facility] Last Admin: 04/05/20 09:03 Dose: 12.5 mg Documented by: Heparin Sodium (Porcine) (Heparin -) 5,000 unit SQ TID [facility] Last Admin: 04/05/20 05:42 Dose: 5,000 unit Documented by: Sodium Chloride (Normal Saline -) 1,000 mls @ 42 mls/hr IV ASDIR [facility] Last Admin: 04/04/20 21:50 Dose: 42 mls/hr Documented by: Piperacillin Sod/Tazobactam (Sod 3.375 gm/ Dextrose) 50 mls @ 100 mls/hr IVPB Q8H-IV [facility]; Protocol Last Admin: 04/05/20 09:03 Dose: 100 mls/hr Documented by: Insulin Aspart (Novolog Vial Sliding Scale -) 1 vial SQ ACHS [facility]; Protocol Last Admin: 04/05/20 06:03 Dose: Not Given Documented by: Lisinopril (Prinivil) 20 mg PO DAILY [facility] Last Admin: 04/05/20 09:03 Dose: 20 mg Documented by: Methadone HCl 80 mg/ Methadone (HCl 30 mg) 110 mg PO DAILY@0600 [facility] Last Admin: 04/05/20 05:42 Dose: 110 mg Documented by: - Objective Vital Signs: Vital Signs Temperature 98.5 F 04/05/20 05:30 Pulse Rate 62 04/05/20 05:30 Respiratory Rate 18 04/05/20 05:30 Blood Pressure 150/80 04/05/20 05:30 O2 Sat by Pulse Oximetry (%) 96 04/05/20 05:30 Constitutional: Yes: No Distress, Calm Cardiovascular: Yes: S1, S2 Respiratory: Yes: Regular, CTA Bilaterally Gastrointestinal: Yes: Normal Bowel Sounds, Soft Musculoskeletal: Yes: WNL Extremities: Yes: Erythema, Other Wound/Incision: Yes: Dressing Dry and Intact Neurological: Yes: Alert, Oriented Labs: CBC, BMP 04/05/20 08:05 04/05/20 08:05 INR, PTT INR 1.13 (0.83-1.09) H 04/03/20 14:20 Assessment/Plan 64 y/o M, pmh of HTN, DM, PVD, substance abuse/Heroin-Nasal on methadone, presents to the ED c/o of left leg pain, skin changes, erythema, clear purulent discharge of 2 weeks duration that started off as a mild skin changes and worsen ed since onset admitted for Cellulitis of the the LLE #Cellulitis of the the LLE #Substance abuse #PVD #HTN #DM #Obesity with LE edema plan continue abx await for cx reports rest as per the team
[2020-04-05] MEDS: SODIUM CHLORIDE 1,000 ML IV SCH (21:58)
[2020-04-05] MEDS ORDERED: ACETAMINOPHEN 1000 MG/100 ML VIAL (NON FORMULARY) IVPB ONE (22:45)
[2020-04-06] MEDS ORDERED: PIPERACILLIN/TAZOBACTAM 3.375 GM VIAL IVPB ONE ×3 (01:07→16:41)
[2020-04-06] MEDS ORDERED: DEXTROSE 5%-WATER - 50 ML IVPB ONE ×3 (01:07→16:41)
[2020-04-06] MEDS: PIPERACILLIN/TAZOB 3.375 GM 3.375 GM in DEXTROSE 5%-WATER - 50 ML IVPB SCH ×3 (01:14→17:15)
[2020-04-06] MEDS ORDERED: METHADONE HCL 40 MG DISPERSABLE TABLET ONE (05:59)
[2020-04-06] MEDS ORDERED: METHADONE HCL 10 MG TABLET ONE (05:59)
[2020-04-06] MEDS: METHADONE 80 MG, METHADONE 30 MG PO SCH (06:05)
[2020-04-06] MEDS: INSULIN SLIDING SCALE (NOVOLOG) 1 VIAL SQ SCH ×4 (06:06→21:48)
[2020-04-06] MEDS: HEPARIN NA (PORCINE) 5,000 UNITS/ML 1ML VIAL SQ SCH ×3 (06:06→22:07)
[2020-04-06] MEDS: CARVEDILOL 12.5 MG TABLET (FP) PO SCH ×2 (09:18→23:23)
[2020-04-06] MEDS: LISINOPRIL 20 MG TABLET (FP) PO SCH (09:18)
--- NOTE | 2020-04-06 15:01 | PN ---
Progress Note, Physician History of Present Illness: seen and examined at bedside. no complaints. endorses feeling better and leg is not as hot as it was. States he was told wound is improving when the dressing was changed today. Afebrile. no leukocytosis from yesterday. no labs drawn today. Denies nausea vomiting fever chills chest pain SOB diarrhea constipation. Has good appetite and is eating and drinking well. States he is ambulating on his own today. Wound culture growing pseudomonas, Group B strep Agalactiae, and another lactose fermenting GNB. - Current Medication List Current Medications: Active Medications Carvedilol (Coreg -) 12.5 mg PO BID [facility] Last Admin: 04/06/20 09:18 Dose: 12.5 mg Documented by: Heparin Sodium (Porcine) (Heparin -) 5,000 unit SQ TID [facility] Last Admin: 04/06/20 14:04 Dose: 5,000 unit Documented by: Sodium Chloride (Normal Saline -) 1,000 mls @ 42 mls/hr IV ASDIR [facility] Last Admin: 04/05/20 21:58 Dose: 42 mls/hr Documented by: Piperacillin Sod/Tazobactam (Sod 3.375 gm/ Dextrose) 50 mls @ 100 mls/hr IVPB Q8H-IV [facility]; Protocol Last Admin: 04/06/20 09:18 Dose: 100 mls/hr Documented by: Insulin Aspart (Novolog Vial Sliding Scale -) 1 vial SQ ACHS [facility]; Protocol Last Admin: 04/06/20 11:20 Dose: Not Given Documented by: Lisinopril (Prinivil) 20 mg PO DAILY [facility] Last Admin: 04/06/20 09:18 Dose: 20 mg Documented by: Methadone HCl 80 mg/ Methadone (HCl 30 mg) 110 mg PO DAILY@0600 [facility] Last Admin: 04/06/20 06:05 Dose: 110 mg Documented by: - Objective Vital Signs: Vital Signs Temperature 97 F L 04/06/20 08:52 Pulse Rate 60 04/06/20 08:52 Respiratory Rate 20 04/06/20 08:52 Blood Pressure 124/80 04/06/20 08:52 O2 Sat by Pulse Oximetry (%) 95 04/06/20 08:52 Constitutional: Yes: No Distress, Obese Eyes: Yes: Conjunctiva Clear, EOM Intact HENT: Yes: Other (very poor dentition. Black teeth.) Cardiovascular: Yes: WNL, Regular Rate and Rhythm. No: Murmur Respiratory: Yes: WNL, Regular, CTA Bilaterally Gastrointestinal: Yes: WNL, Normal Bowel Sounds, Soft, Abdomen, Obese Extremities: Yes: Other (LLE dressed. Area marked with a pen around the erythema seems to be improving. pain and tenderness improved significantly per patient.) Edema: Yes Edema: LLE: 1+, RLE: 1+ Integumentary: Yes: Venous Stasis Changes (bilateral lower extremities) Labs: CBC, BMP 04/05/20 08:05 04/05/20 08:05 INR, PTT INR 1.13 (0.83-1.09) H 04/03/20 14:20 - ....Imaging Chest X-ray: Report Reviewed, Image Reviewed X-ray: Report Reviewed, Image Reviewed (Ankle and Tib/Fib) Cat Scan: Report Reviewed, Image Reviewed (LLE) Impression/Plan Impression/Plan: LLE cellulitis after trauma to the leg. Patient states he delayed seeking treatment ID consult noted and appreciated f/u final wound cultures- So far wound culture growing pseudomonas, Group B strep Agalactiae, and another lactose fermenting GNB on zosyn-so far organisms are sensitive to Zosyn. f/u ID for further recs daily dressing changes Patient to continue following up with wound care center with Dr. Gonzalez and Arcelia after discharge. Diabetes monitor bgms, on novolog sliding scale, hmga1c 7.1 continue current management as fingersticks are well controlled patient extensively counselled on the importance of diet and exercise. Counselled on the need for weight loss as the patient is morbidly obese. HTN continue Coreg and Lisinopril Stop IVF BP is well controlled on current regimen Methadone dependence continue methadone maintenance. Morbid obesity discussed the need for weight loss with the patient DVT prophylaxis heparin tid Diabetic/low sodium diet Visit type - Emergency Visit Emergency Visit: Yes ED Registration Date: 04/03/20 Care time: The patient presented to the Emergency Department on the above date and was hospitalized for further evaluation of their emergent condition. - New Patient This patient is new to me today: Yes Date on this admission: 04/06/20 - Critical Care Critical Care patient: No
[2020-04-06 16:44] LABS: BASO % 0.8 % (0-2.0); EOS % 2.1 % (0-4.5); HEMATOCRIT 38.6 % (35.4-49); HEMOGLOBIN 12.9 GM/dL (11.7-16.9); LYMPH % 19.6 % (8-40); MCH 29.7 pg (25.7-33.7); MCHC 33.4 g/dl (32.0-35.9); MEAN CELL VOLUME 88.9 fl (80-96); MEAN PLT VOLUME 7.8 fl (7.5-11.1); NEUT % 68.5 % (42.8-82.8); PLATELET COUNT 275 K/MM3 (134-434); RBC 4.34 M/mm3 (4.00-5.60); RDW 13.5 % (11.9-15.9); WHITE BLOOD COUNT 9.9 K/mm3 (4.0-10.0)
[2020-04-06 17:13] LABS: ALBUMIN 3.4 g/dl (3.4-5.0); BILIRUBIN,TOTAL 0.3 mg/dL (0.2-1); BLOOD UREA NITROGEN 11.2 mg/dL (7-18); CALCIUM 8.8 mg/dL (8.5-10.1); CREATININE 0.8 mg/dL (0.55-1.3); MAGNESIUM 2.4 mg/dL (1.8-2.4); TOT PROT 7.2 g/dl (6.4-8.2)
[2020-04-07] MEDS ORDERED: DEXTROSE 5%-WATER - 50 ML IVPB ONE ×3 (02:36→17:04)
[2020-04-07] MEDS ORDERED: PIPERACILLIN/TAZOBACTAM 3.375 GM VIAL IVPB ONE ×3 (02:36→17:04)
[2020-04-07] MEDS: PIPERACILLIN/TAZOB 3.375 GM 3.375 GM in DEXTROSE 5%-WATER - 50 ML IVPB SCH ×3 (02:38→17:23)
[2020-04-07] MEDS ORDERED: METHADONE HCL 40 MG DISPERSABLE TABLET ONE (06:34)
[2020-04-07] MEDS ORDERED: METHADONE HCL 10 MG TABLET ONE (06:34)
[2020-04-07] MEDS: METHADONE 80 MG, METHADONE 30 MG PO SCH (06:39)
[2020-04-07] MEDS: INSULIN SLIDING SCALE (NOVOLOG) 1 VIAL SQ SCH ×4 (06:51→21:28)
[2020-04-07] MEDS: HEPARIN NA (PORCINE) 5,000 UNITS/ML 1ML VIAL SQ SCH ×3 (06:56→21:28)
[2020-04-07 09:02] LABS: BASO % 0.6 % (0-2.0); EOS % 0.9 % (0-4.5); HEMATOCRIT 40.2 % (35.4-49); HEMOGLOBIN 13.3 GM/dL (11.7-16.9); LYMPH % 16.4 % (8-40); MCH 29.1 pg (25.7-33.7); MCHC 33.2 g/dl (32.0-35.9); MEAN CELL VOLUME 87.6 fl (80-96); MEAN PLT VOLUME 7.7 fl (7.5-11.1); MONO % 5.8 % (3.8-10.2); NEUT % 76.3 % (42.8-82.8); PLATELET COUNT 312 K/MM3 (134-434); RBC 4.58 M/mm3 (4.00-5.60); RDW 13.2 % (11.9-15.9); WHITE BLOOD COUNT 11.7 K/mm3 (4.0-10.0)
[2020-04-07 09:21] LABS: ALBUMIN 3.7 g/dl (3.4-5.0); BILIRUBIN,TOTAL 0.5 mg/dL (0.2-1); BLOOD UREA NITROGEN 10.2 mg/dL (7-18); CALCIUM 9.3 mg/dL (8.5-10.1); CREATININE 0.8 mg/dL (0.55-1.3); MAGNESIUM 2.3 mg/dL (1.8-2.4); POTASSIUM 4.2 mmol/L (3.5-5.1)
[2020-04-07] MEDS: CARVEDILOL 12.5 MG TABLET (FP) PO SCH ×2 (10:00→21:28)
[2020-04-07] MEDS: LISINOPRIL 20 MG TABLET (FP) PO SCH (10:00)
--- NOTE | 2020-04-07 10:29 | PN ---
Physical Exam: SUBJECTIVE: Patient seen and examined OBJECTIVE: Patient is a 64 year male with a significant past medical history of HTN, DM, PVD, substance abuse/Heroin-Nasal on methadone, presents to the ED c/o of left leg pain, skin changes, erythema, clear purulent discharge of 2 weeks duration that started off as a mild skin changes and worsened since onset. Patient is being treated for left leg celluitis. a culture of this wound has been sent and pending. blood cultures negative. covid status: pending Vital Signs Period Temp Pulse Resp BP Sys/[place] Pulse Ox Last 24 Hr 98.5 F-98.8 F 56-65 20-20 115-150/53-79 92-94 GENERAL: The patient is awake, alert, and fully oriented, in no acute distress. disheveled HEAD: Normal with no signs of trauma. EYES: PERRL, extraocular movements intact, sclera anicteric, conjunctiva clear. No ptosis. ENT: Ears normal, nares patent, oropharynx clear without exudates, moist mucous membranes. NECK: Trachea midline, full range of motion, supple. LUNGS: Breath sounds equal, clear to auscultation bilaterally HEART: Regular rate and rhythm ABDOMEN: obese abdomen, soft EXTREMITIES: hyperpigmentation of right lower ext. left lower ext wound closed with dry skin, no open lesions NEUROLOGICAL: Normal speech, gait not observed. PSYCH: Normal mood, normal affect. Laboratory Results - last 24 hr 04/06/20 04/06/20 04/06/20 11:19 16:00 16:00 WBC 9.9 RBC 4.34 Hgb 12.9 Hct 38.6 MCV 88.9 MCH 29.7 MCHC 33.4 RDW 13.5 Plt Count 275 MPV 7.8 Absolute Neuts (auto) 6.8 Neutrophils % 68.5 Lymphocytes % 19.6 Monocytes % 9.0 Eosinophils % 2.1 Basophils % 0.8 D Nucleated RBC % 0 Sodium 140 Potassium 4.0 Chloride 104 Carbon Dioxide 27 Anion Gap 8 BUN 11.2 Creatinine 0.8 Est GFR (CKD-EPI)AfAm 110.96 Est GFR (CKD-EPI)NonAf 95.74 POC Glucometer 144 Random Glucose 108 H Calcium 8.8 Magnesium 2.4 Total Bilirubin 0.3 AST 26 ALT 33 Alkaline Phosphatase 60 Total Protein 7.2 Albumin 3.4 04/06/20 04/06/20 04/07/20 16:38 21:45 06:49 WBC RBC Hgb Hct MCV MCH MCHC RDW Plt Count MPV Absolute Neuts (auto) Neutrophils % Lymphocytes % Monocytes % Eosinophils % Basophils % Nucleated RBC % Sodium Potassium Chloride Carbon Dioxide Anion Gap BUN Creatinine Est GFR (CKD-EPI)AfAm Est GFR (CKD-EPI)NonAf POC Glucometer 121 88 110 Random Glucose Calcium Magnesium Total Bilirubin AST ALT Alkaline Phosphatase Total Protein Albumin 04/07/20 04/07/20 08:04 08:04 WBC 11.7 H RBC 4.58 Hgb 13.3 Hct 40.2 MCV 87.6 MCH 29.1 MCHC 33.2 RDW 13.2 Plt Count 312 MPV 7.7 Absolute Neuts (auto) 8.9 H Neutrophils % 76.3 Lymphocytes % 16.4 Monocytes % 5.8 Eosinophils % 0.9 Basophils % 0.6 Nucleated RBC % 0 Sodium 137 Potassium 4.2 Chloride 101 Carbon Dioxide 29 Anion Gap 7 L BUN 10.2 Creatinine 0.8 Est GFR (CKD-EPI)AfAm 110.96 Est GFR (CKD-EPI)NonAf 95.74 POC Glucometer Random Glucose 138 H Calcium 9.3 Magnesium 2.3 Total Bilirubin 0.5 AST 27 ALT 35 Alkaline Phosphatase 60 Total Protein 8.0 Albumin 3.7 Active Medications Generic Name Dose Route Start Last Admin Trade Name Freq PRN Reason Stop Dose Admin Carvedilol 12.5 mg 04/03/20 22:00 04/07/20 10:00 Coreg - PO 12.5 mg BID JACQUELYN Administration Heparin Sodium (Porcine) 5,000 unit 04/03/20 22:00 04/07/20 06:56 Heparin - SQ 5,000 unit TID JACQUELYN Administration Piperacillin Sod/Tazobactam 50 mls @ 100 mls/hr 04/04/20 11:45 04/07/20 09:59 Sod 3.375 gm/ Dextrose IVPB 100 mls/hr Q8H-IV JACQUELYN Administration Protocol Insulin Aspart 1 vial 04/03/20 22:00 04/07/20 06:51 Novolog Vial Sliding Scale - SQ Not Given ACHS JACQUELYN Protocol Lisinopril 20 mg 04/03/20 17:15 04/07/20 10:00 Prinivil PO 20 mg DAILY JACQUELYN Administration Methadone HCl 80 mg/ Methadone 110 mg 04/04/20 09:00 04/07/20 06:39 HCl 30 mg PO 110 mg DAILY@0600 [facility] Administration ASSESSMENT/PLAN: Problem List - Problems (1) Cellulitis Assessment/Plan: blood cultures pending on zosyn wound culture sent/pending monitor drainage daily dressing lower ext ct noted Code(s): L03.90 - CELLULITIS, UNSPECIFIED Qualifiers: Site of cellulitis: extremity Site of cellulitis of extremity: lower extremity Laterality: left Qualified Code(s): L03.116 - Cellulitis of left lower limb (2) Diabetes Assessment/Plan: monitor bgms, on novolog sliding scale, hmga1c 7.1 Code(s): E11.9 - TYPE 2 DIABETES MELLITUS WITHOUT COMPLICATIONS (3) Methadone dependence Assessment/Plan: continue methadone maintenance. 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 - New Patient This patient is new to me today: No - Critical Care Critical Care patient: No - Discharge Referral Referred to [facility] Med P.C.: No
--- NOTE | 2020-04-07 10:31 | PN ---
Progress Note, Physician History of Present Illness: brayden oconnor - Current Medication List Current Medications: Active Medications Carvedilol (Coreg -) 12.5 mg PO BID [facility] Last Admin: 04/07/20 10:00 Dose: 12.5 mg Documented by: Heparin Sodium (Porcine) (Heparin -) 5,000 unit SQ TID [facility] Last Admin: 04/07/20 06:56 Dose: 5,000 unit Documented by: Piperacillin Sod/Tazobactam (Sod 3.375 gm/ Dextrose) 50 mls @ 100 mls/hr IVPB Q8H-IV [facility]; Protocol Last Admin: 04/07/20 09:59 Dose: 100 mls/hr Documented by: Insulin Aspart (Novolog Vial Sliding Scale -) 1 vial SQ ACHS [facility]; Protocol Last Admin: 04/07/20 06:51 Dose: Not Given Documented by: Lisinopril (Prinivil) 20 mg PO DAILY [facility] Last Admin: 04/07/20 10:00 Dose: 20 mg Documented by: Methadone HCl 80 mg/ Methadone (HCl 30 mg) 110 mg PO DAILY@0600 [facility] Last Admin: 04/07/20 06:39 Dose: 110 mg Documented by: - Objective Vital Signs: Vital Signs Temperature 98.5 F 04/07/20 09:06 Pulse Rate 65 04/07/20 09:06 Respiratory Rate 20 04/07/20 09:06 Blood Pressure 142/79 04/07/20 09:06 O2 Sat by Pulse Oximetry (%) 94 L 04/07/20 09:06 Constitutional: Yes: No Distress, Calm Cardiovascular: Yes: S1, S2 Respiratory: Yes: Regular, CTA Bilaterally Gastrointestinal: Yes: Normal Bowel Sounds, Soft Musculoskeletal: Yes: WNL Extremities: Yes: Erythema, Other Neurological: Yes: Alert, Oriented Psychiatric: Yes: Alert, Oriented Labs: CBC, BMP 04/07/20 08:04 04/07/20 08:04 INR, PTT INR 1.13 (0.83-1.09) H 04/03/20 14:20 Assessment/Plan 64 y/o M, pmh of HTN, DM, PVD, substance abuse/Heroin-Nasal on methadone, presents to the ED c/o of left leg pain, skin changes, erythema, clear purulent discharge of 2 weeks duration that started off as a mild skin changes and worsened since onset admitted for Cellulitis of the the LLE #Cellulitis of the the LLE #Substance abuse #PVD #HTN #DM #Obesity with LE edema plan continue abx cx report noted still waiting identification of organism
[2020-04-08] MEDS ORDERED: DEXTROSE 5%-WATER - 50 ML IVPB ONE ×3 (00:58→16:38)
[2020-04-08] MEDS ORDERED: PIPERACILLIN/TAZOBACTAM 3.375 GM VIAL IVPB ONE ×3 (00:58→16:37)
[2020-04-08] MEDS: PIPERACILLIN/TAZOB 3.375 GM 3.375 GM in DEXTROSE 5%-WATER - 50 ML IVPB SCH ×3 (01:46→17:10)
[2020-04-08] MEDS ORDERED: METHADONE HCL 10 MG TABLET ONE (05:49)
[2020-04-08] MEDS ORDERED: METHADONE HCL 40 MG DISPERSABLE TABLET ONE (05:50)
[2020-04-08] MEDS: METHADONE 80 MG, METHADONE 30 MG PO SCH (06:00)
[2020-04-08] MEDS: HEPARIN NA (PORCINE) 5,000 UNITS/ML 1ML VIAL SQ SCH ×3 (06:00→21:31)
[2020-04-08] MEDS: INSULIN SLIDING SCALE (NOVOLOG) 1 VIAL SQ SCH ×4 (06:04→21:31)
--- NOTE | 2020-04-08 09:22 | PN ---
Progress Note, Physician Chief Complaint: Seen and examined sitting in chair. States lower extrem edema much improved. No further weeping to left LE. COVID PCR negative History of Present Illness: 64 year male with a significant past medical history of HTN, DM, PVD, substance abuse/Heroin-Nasal on methadone, presents to the ED c/o of left leg pain, skin changes, erythema, clear purulent discharge of 2 weeks duration that started off as a mild skin changes and worsened since onset. Patient is being treated for l eft leg celluitis. a culture of this wound has been sent and pending. blood cultures negative. covid status: pending - Current Medication List Current Medications: Active Medications Carvedilol (Coreg -) 12.5 mg PO BID [facility] Last Admin: 04/07/20 21:28 Dose: 12.5 mg Documented by: Heparin Sodium (Porcine) (Heparin -) 5,000 unit SQ TID [facility] Last Admin: 04/08/20 06:00 Dose: 5,000 unit Documented by: Piperacillin Sod/Tazobactam (Sod 3.375 gm/ Dextrose) 50 mls @ 100 mls/hr IVPB Q8H-IV [facility]; Protocol Last Admin: 04/08/20 01:46 Dose: 100 mls/hr Documented by: Insulin Aspart (Novolog Vial Sliding Scale -) 1 vial SQ ACHS [facility]; Protocol Last Admin: 04/08/20 06:04 Dose: Not Given Documented by: Lisinopril (Prinivil) 20 mg PO DAILY [facility] Last Admin: 04/07/20 10:00 Dose: 20 mg Documented by: Methadone HCl 80 mg/ Methadone (HCl 30 mg) 110 mg PO DAILY@0600 [facility] Last Admin: 04/08/20 06:00 Dose: 110 mg Documented by: - Objective Vital Signs: Vital Signs Temperature 98.4 F 04/08/20 06:00 Pulse Rate 54 L 04/08/20 06:00 Respiratory Rate 20 04/08/20 06:00 Blood Pressure 127/85 04/08/20 06:00 O2 Sat by Pulse Oximetry (%) 95 04/08/20 06:00 Constitutional: Yes: No Distress, Calm, Obese Eyes: Yes: WNL, Conjunctiva Clear HENT: Yes: WNL, Atraumatic, Normocephalic Neck: Yes: WNL, Supple, Trachea Midline Cardiovascular: Yes: WNL, Regular Rate and Rhythm Respiratory: Yes: WNL, Regular, CTA Bilaterally Gastrointestinal: Yes: Normal Bowel Sounds, Soft, Abdomen, Obese ...Rectal Exam: Yes: Deferred Genitourinary: Yes: WNL Breast(s): Yes: WNL Musculoskeletal: Yes: WNL Extremities: Yes: WNL Edema: Yes Edema: LLE: 1+, RLE: 1+ Peripheral Pulses WNL: Yes Peripheral Pulses: Left Radial: 2+, Right Radial: 2+, Left Doralis Pedis: 2+, Right Dorsalis Pedis: 2+, Left Femoral: 2+, Right Femoral: 2+ Integumentary: Yes: Other (jillian wraps to LE BL, no draiange) Wound/Incision: Yes: Dressing Dry and Intact Neurological: Yes: WNL, Alert, Oriented ...Motor Strength: WNL Psychiatric: Yes: WNL Labs: CBC, BMP 04/07/20 08:04 04/07/20 08:04 INR, PTT INR 1.13 (0.83-1.09) H 04/03/20 14:20 Problem List - Problems (1) HTN (hypertension) Assessment/Plan: normotensive c/w lisipipril, coreg with hold parameters Code(s): I10 - ESSENTIAL (PRIMARY) HYPERTENSION (2) Prophylactic measure Assessment/Plan: FEN Fluids: adequate PO intake Electrolytes: monitor & replete as needed Nutrition: diabetic diet DVT moderate risk sq heparin Dispo Maintain as inpatient full code discharge planning Code(s): Z29.9 - ENCOUNTER FOR PROPHYLACTIC MEASURES, UNSPECIFIED (3) PVD (peripheral vascular disease) Assessment/Plan: follows with Dr Gonzalez in wound clinic Code(s): I73.9 - PERIPHERAL VASCULAR DISEASE, UNSPECIFIED (4) Polysubstance (excluding opioids) dependence Assessment/Plan: on methadone maintenence Code(s): F19.20 - OTHER PSYCHOACTIVE SUBSTANCE DEPENDENCE, UNCOMPLICATED (5) Methadone maintenance therapy patient Assessment/Plan: c/w methadone 110mg Code(s): F11.20 - OPIOID DEPENDENCE, UNCOMPLICATED (6) COVID-19 ruled out Assessment/Plan: negative PCR Code(s): Z03.818 - ENCNTR FOR OBS FOR SUSP EXPSR TO OTH BIOLG AGENTS RULED OUT (7) Cellulitis Assessment/Plan: c/w zosyn ID following wound with pseudomonas Sensitive to zosyn to determine length Code(s): L03.90 - CELLULITIS, UNSPECIFIED Qualifiers: Site of cellulitis: extremity Site of cellulitis of extremity: lower extremity Laterality: left Qualified Code(s): L03.116 - Cellulitis of left lower limb (8) Diabetes Assessment/Plan: BGM AC/HS with novolog sliding scale diabetic diet Code(s): E11.9 - TYPE 2 DIABETES MELLITUS WITHOUT COMPLICATIONS Visit type - Emergency Visit Emergency Visit: Yes ED Registration Date: 04/03/20 Care time: The patient presented to the Emergency Department on the above date and was hospitalized for further evaluation of their emergent condition. - New Patient This patient is new to me today: Yes Date on this admission: 04/08/20 - Critical Care Critical Care patient: No - Discharge Referral Referred to [facility] No
[2020-04-08] MEDS: LISINOPRIL 20 MG TABLET (FP) PO SCH (09:29)
[2020-04-08] MEDS: CARVEDILOL 12.5 MG TABLET (FP) PO SCH ×2 (09:29→21:31)
--- NOTE | 2020-04-08 11:55 | PN ---
Progress Note, Physician History of Present Illness: sable improving leg looks better - Current Medication List Current Medications: Active Medications Carvedilol (Coreg -) 12.5 mg PO BID [facility] Last Admin: 04/08/20 09:29 Dose: 12.5 mg Documented by: Heparin Sodium (Porcine) (Heparin -) 5,000 unit SQ TID [facility] Last Admin: 04/08/20 06:00 Dose: 5,000 unit Documented by: Piperacillin Sod/Tazobactam (Sod 3.375 gm/ Dextrose) 50 mls @ 100 mls/hr IVPB Q8H-IV [facility]; Protocol Last Admin: 04/08/20 09:29 Dose: 100 mls/hr Documented by: Insulin Aspart (Novolog Vial Sliding Scale -) 1 vial SQ ACHS [facility]; Protocol Last Admin: 04/08/20 11:38 Dose: Not Given Documented by: Lisinopril (Prinivil) 20 mg PO DAILY [facility] Last Admin: 04/08/20 09:29 Dose: 20 mg Documented by: Methadone HCl 80 mg/ Methadone (HCl 30 mg) 110 mg PO DAILY@0600 [facility] Last Admin: 04/08/20 06:00 Dose: 110 mg Documented by: - Objective Vital Signs: Vital Signs Temperature 98.6 F 04/08/20 09:24 Pulse Rate 55 L 04/08/20 09:24 Respiratory Rate 20 04/08/20 09:24 Blood Pressure 140/80 04/08/20 09:24 O2 Sat by Pulse Oximetry (%) 94 L 04/08/20 09:24 Constitutional: Yes: No Distress, Calm Cardiovascular: Yes: S1, S2 Respiratory: Yes: Regular, CTA Bilaterally Gastrointestinal: Yes: Normal Bowel Sounds, Soft Musculoskeletal: Yes: WNL Extremities: Yes: Other Edema: LLE: Trace, RLE: Trace Wound/Incision: Yes: Dressing Dry and Intact Neurological: Yes: Alert, Oriented Psychiatric: Yes: Alert, Oriented Labs: CBC, BMP 04/07/20 08:04 04/07/20 08:04 INR, PTT INR 1.13 (0.83-1.09) H 04/03/20 14:20 Assessment/Plan 64 y/o M, pmh of HTN, DM, PVD, substance abuse/Heroin-Nasal on methadone, presents to the ED c/o of left leg pain, skin changes, erythema, clear purulent discharge of 2 weeks duration that started off as a mild skin changes and worsened since onset admitted for Cellulitis of the the LLE #Cellulitis of the the LLE #Substance abuse #PVD #HTN #DM #Obesity with LE edema plan continue abx cx report noted still waiting identification of organism
[2020-04-08 16:00] LABS: BASO % 0.6 % (0-2.0); EOS % 1.6 % (0-4.5); HEMATOCRIT 38.8 % (35.4-49); HEMOGLOBIN 12.7 GM/dL (11.7-16.9); LYMPH % 16.6 % (8-40); MCH 28.9 pg (25.7-33.7); MCHC 32.7 g/dl (32.0-35.9); MEAN CELL VOLUME 88.2 fl (80-96); MEAN PLT VOLUME 7.9 fl (7.5-11.1); MONO % 7.9 % (3.8-10.2); NEUT % 73.3 % (42.8-82.8); PLATELET COUNT 296 K/MM3 (134-434); RDW 13.4 % (11.9-15.9); WHITE BLOOD COUNT 12.6 K/mm3 (4.0-10.0)
[2020-04-08 16:22] LABS: ALBUMIN 3.5 g/dl (3.4-5.0); BILIRUBIN,TOTAL 0.3 mg/dL (0.2-1); BLOOD UREA NITROGEN 12.7 mg/dL (7-18); CALCIUM 9.2 mg/dL (8.5-10.1); CREATININE 0.7 mg/dL (0.55-1.3); MAGNESIUM 2.5 mg/dL (1.8-2.4); TOT PROT 7.2 g/dl (6.4-8.2)
[2020-04-08] MEDS ORDERED: INSULIN (NOVOLOG) ASPART 100 UNITS/ML 10ML VIAL ONE (21:12)
[2020-04-09] MEDS ORDERED: PIPERACILLIN/TAZOBACTAM 3.375 GM VIAL IVPB ONE ×3 (02:36→17:39)
[2020-04-09] MEDS ORDERED: DEXTROSE 5%-WATER - 50 ML IVPB ONE ×3 (02:36→17:39)
[2020-04-09] MEDS: PIPERACILLIN/TAZOB 3.375 GM 3.375 GM in DEXTROSE 5%-WATER - 50 ML IVPB SCH ×3 (02:45→17:52)
[2020-04-09] MEDS ORDERED: METHADONE HCL 10 MG TABLET ONE (06:03)
[2020-04-09] MEDS ORDERED: METHADONE HCL 40 MG DISPERSABLE TABLET ONE (06:04)
[2020-04-09] MEDS: HEPARIN NA (PORCINE) 5,000 UNITS/ML 1ML VIAL SQ SCH ×4 (06:22→21:19)
[2020-04-09] MEDS: METHADONE 80 MG, METHADONE 30 MG PO SCH (06:23)
[2020-04-09] MEDS: INSULIN SLIDING SCALE (NOVOLOG) 1 VIAL SQ SCH ×4 (06:28→21:19)
[2020-04-09] MEDS ORDERED: INSULIN (NOVOLOG) ASPART 100 UNITS/ML 10ML VIAL ONE ×2 (07:22→11:25)
[2020-04-09] MEDS ORDERED: PT OWN MED DRAWER 7, Y5N ONE (07:22)
--- NOTE | 2020-04-09 08:29 | PN ---
Progress Note, Physician Chief Complaint: Seen and examined in bed. Additional day of IV abx and will be able to convert to oral tomorrow. No further weeping to left LE. COVID PCR negative History of Present Illness: 64 year male with a significant past medical history of HTN, DM, PVD, substance abuse/Heroin-Nasal on methadone, presents to the ED c/o of left leg pain, skin changes, erythema, clear purulent discharge of 2 weeks duration that started off as a mild skin changes and worsened since onset. Patient is being treated for left leg celluitis. a culture of this wound has been sent and pending. blood cultures negative. covid status: pending - Current Medication List Current Medications: Active Medications Carvedilol (Coreg -) 12.5 mg PO BID [facility] Last Admin: 04/08/20 21:31 Dose: 12.5 mg Documented by: Heparin Sodium (Porcine) (Heparin -) 5,000 unit SQ TID [facility] Last Admin: 04/09/20 06:22 Dose: 5,000 unit Documented by: Piperacillin Sod/Tazobactam (Sod 3.375 gm/ Dextrose) 50 mls @ 100 mls/hr IVPB Q8H-IV [facility]; Protocol Last Admin: 04/09/20 02:45 Dose: 100 mls/hr Documented by: Insulin Aspart (Novolog Vial Sliding Scale -) 1 vial SQ ACHS [facility]; Protocol Last Admin: 04/09/20 06:28 Dose: Not Given Documented by: Lisinopril (Prinivil) 20 mg PO DAILY [facility] Last Admin: 04/08/20 09:29 Dose: 20 mg Documented by: Methadone HCl 80 mg/ Methadone (HCl 30 mg) 110 mg PO DAILY@0600 [facility] Last Admin: 04/09/20 06:23 Dose: 110 mg Documented by: - Objective Vital Signs: Vital Signs Temperature 98.7 F 04/09/20 06:00 Pulse Rate 50 L 04/09/20 06:00 Respiratory Rate 18 04/09/20 06:00 Blood Pressure 111/64 04/09/20 06:00 O2 Sat by Pulse Oximetry (%) 97 04/09/20 06:00 Additional Findings/Remarks: Constitutional: Yes: No Distress, Calm, Obese Eyes: Yes: WNL, Conjunctiva Clear HENT: Yes: WNL, Atraumatic, Normocephalic Neck: Yes: WNL, Supple, Trachea Midline Cardiovascular: Yes: WNL, Regular Rate and Rhythm Respiratory: Yes: WNL, Regular, CTA Bilaterally Gastrointestinal: Yes: Normal Bowel Sounds, Soft, Abdomen, Obese ...Rectal Exam: Yes: Deferred Genitourinary: Yes: WNL Breast(s): Yes: WNL Musculoskeletal: Yes: WNL Extremities: Yes: WNL Edema: Yes Edema: LLE: 1+, RLE: 1+ Peripheral Pulses WNL: Yes Peripheral Pulses: Left Radial: 2+, Right Radial: 2+, Left Doralis Pedis: 2+, Right Dorsalis Pedis: 2+, Left Femoral: 2+, Right Femoral: 2+ Integumentary: Yes: Other (jillian wraps to LE BL, no draiange) Wound/Incision: Yes: Dressing Dry and Intact Neurological: Yes: WNL, Alert, Oriented ...Motor Strength: WNL Psychiatric: Yes: WNL Labs: INR, PTT INR 1.13 (0.83-1.09) H 04/03/20 14:20 Problem List - Problems (1) HTN (hypertension) Assessment/Plan: normotensive c/w lisinipril, coreg with hold parameters Code(s): I10 - ESSENTIAL (PRIMARY) HYPERTENSION (2) Prophylactic measure Assessment/Plan: FEN Fluids: adequate PO intake Electrolytes: monitor & replete as needed Nutrition: diabetic diet DVT moderate risk sq heparin Dispo Maintain as inpatient full code discharge planning to home tomorrow Code(s): Z29.9 - ENCOUNTER FOR PROPHYLACTIC MEASURES, UNSPECIFIED (3) PVD (peripheral vascular disease) Assessment/Plan: follows with Dr Gonzalez in wound clinic has appointment on Apr 14 Code(s): I73.9 - PERIPHERAL VASCULAR DISEASE, UNSPECIFIED (4) Polysubstance (excluding opioids) dependence Assessment/Plan: on methadone maintenance Code(s): F19.20 - OTHER PSYCHOACTIVE SUBSTANCE DEPENDENCE, UNCOMPLICATED (5) Methadone maintenance therapy patient Assessment/Plan: c/w methadone 110mg Code(s): F11.20 - OPIOID DEPENDENCE, UNCOMPLICATED (6) COVID-19 ruled out Assessment/Plan: negative PCR Code(s): Z03.818 - ENCNTR FOR OBS FOR SUSP EXPSR TO OTH BIOLG AGENTS RULED OUT (7) Cellulitis Assessment/Plan: c/w zosyn for one additional day wound with pseudomonas ID following Code(s): L03.90 - CELLULITIS, UNSPECIFIED Qualifiers: Site of cellulitis: extremity Site of cellulitis of extremity: lower extremity Laterality: left Qualified Code(s): L03.116 - Cellulitis of left lower limb (8) Diabetes Assessment/Plan: BGM AC/HS with novolog sliding scale diabetic diet Code(s): E11.9 - TYPE 2 DIABETES MELLITUS WITHOUT COMPLICATIONS Visit type - Emergency Visit Emergency Visit: Yes ED Registration Date: 04/03/20 Care time: The patient presented to the Emergency Department on the above date and was hospitalized for further evaluation of their emergent condition. - New Patient This patient is new to me today: No - Critical Care Critical Care patient: No - Discharge Referral Referred to [facility] Med [facility].: No
[2020-04-09 08:38] LABS: BASO % 0.6 % (0-2.0); EOS % 1.3 % (0-4.5); HEMATOCRIT 40.7 % (35.4-49); HEMOGLOBIN 13.2 GM/dL (11.7-16.9); LYMPH % 17.8 % (8-40); MCH 28.9 pg (25.7-33.7); MCHC 32.6 g/dl (32.0-35.9); MEAN CELL VOLUME 88.7 fl (80-96); MEAN PLT VOLUME 7.3 fl (7.5-11.1); MONO % 7.9 % (3.8-10.2); NEUT % 72.4 % (42.8-82.8); PLATELET COUNT 308 K/MM3 (134-434); RBC 4.58 M/mm3 (4.00-5.60); RDW 13.8 % (11.9-15.9); WHITE BLOOD COUNT 12.5 K/mm3 (4.0-10.0)
[2020-04-09 09:11] LABS: ALBUMIN 3.6 g/dl (3.4-5.0); BILIRUBIN,TOTAL 0.9 mg/dL (0.2-1); BLOOD UREA NITROGEN 9.9 mg/dL (7-18); CALCIUM 9.1 mg/dL (8.5-10.1); CREATININE 0.8 mg/dL (0.55-1.3); MAGNESIUM 2.5 mg/dL (1.8-2.4); POTASSIUM 4.4 mmol/L (3.5-5.1); TOT PROT 7.6 g/dl (6.4-8.2)
[2020-04-09] MEDS: CARVEDILOL 12.5 MG TABLET (FP) PO SCH ×2 (10:02→21:19)
[2020-04-09] MEDS: LISINOPRIL 20 MG TABLET (FP) PO SCH (10:02)
--- NOTE | 2020-04-09 10:22 | PN ---
Progress Note, Physician History of Present Illness: stable no new issues - Current Medication List Current Medications: Active Medications Carvedilol (Coreg -) 12.5 mg PO BID [facility] Last Admin: 04/09/20 10:02 Dose: 12.5 mg Documented by: Heparin Sodium (Porcine) (Heparin -) 5,000 unit SQ TID [facility] Last Admin: 04/09/20 06:22 Dose: 5,000 unit Documented by: Piperacillin Sod/Tazobactam (Sod 3.375 gm/ Dextrose) 50 mls @ 100 mls/hr IVPB Q8H-IV [facility]; Protocol Last Admin: 04/09/20 10:02 Dose: 100 mls/hr Documented by: Insulin Aspart (Novolog Vial Sliding Scale -) 1 vial SQ ACHS [facility]; Protocol Last Admin: 04/09/20 06:28 Dose: Not Given Documented by: Lisinopril (Prinivil) 20 mg PO DAILY [facility] Last Admin: 04/09/20 10:02 Dose: 20 mg Documented by: Methadone HCl 80 mg/ Methadone (HCl 30 mg) 110 mg PO DAILY@0600 [facility] Last Admin: 04/09/20 06:23 Dose: 110 mg Documented by: - Objective Vital Signs: Vital Signs Temperature 98.7 F 04/09/20 06:00 Pulse Rate 50 L 04/09/20 06:00 Respiratory Rate 18 04/09/20 06:00 Blood Pressure 111/64 04/09/20 06:00 O2 Sat by Pulse Oximetry (%) 97 04/09/20 06:00 Constitutional: Yes: No Distress, Calm Cardiovascular: Yes: S1, S2 Respiratory: Yes: Regular, CTA Bilaterally Gastrointestinal: Yes: Normal Bowel Sounds, Soft Musculoskeletal: Yes: WNL Extremities: Yes: Erythema, Other Wound/Incision: Yes: Dressing Dry and Intact Neurological: Yes: Alert, Oriented Psychiatric: Yes: Alert, Oriented Labs: CBC, BMP 04/09/20 08:05 04/09/20 08:05 INR, PTT INR 1.13 (0.83-1.09) H 04/03/20 14:20 Assessment/Plan 64 y/o M, pmh of HTN, DM, PVD, substance abuse/Heroin-Nasal on methadone, presents to the ED c/o of left leg pain, skin changes, erythema, clear purulent discharge of 2 weeks duration that started off as a mild skin changes and worsened since onset admitted for Cellulitis of the the LLE #Cellulitis of the the LLE #Substance abuse #PVD #HTN #DM #Obesity with LE edema plan continue abx cx report noted still waiting identification of organism rest as per the team
[2020-04-10] MEDS ORDERED: PIPERACILLIN/TAZOBACTAM 3.375 GM VIAL IVPB ONE (02:52)
[2020-04-10] MEDS ORDERED: DEXTROSE 5%-WATER - 50 ML IVPB ONE (02:53)
[2020-04-10] MEDS: PIPERACILLIN/TAZOB 3.375 GM 3.375 GM in DEXTROSE 5%-WATER - 50 ML IVPB SCH (03:00)
[2020-04-10] MEDS ORDERED: METHADONE HCL 10 MG TABLET ONE (06:10)
[2020-04-10] MEDS ORDERED: METHADONE HCL 40 MG DISPERSABLE TABLET ONE (06:11)
[2020-04-10] MEDS: METHADONE 80 MG, METHADONE 30 MG PO SCH (06:28)
[2020-04-10] MEDS: HEPARIN NA (PORCINE) 5,000 UNITS/ML 1ML VIAL SQ SCH (06:29)
[2020-04-10] MEDS: INSULIN SLIDING SCALE (NOVOLOG) 1 VIAL SQ SCH (06:29)
[2020-04-10] MEDS ORDERED: ALPRAZolam 0.25 MG TABLET PO PRN (08:26)
--- NOTE | 2020-04-10 08:32 | DS ---
Physical Exam: SUBJECTIVE: Patient seen and examined OBJECTIVE: Vital Signs Period Temp Pulse Resp BP Sys/[place] Pulse Ox Last 24 Hr 97.8 F-98.5 F 51-61 18-18 98-148/52-81 83-96 PHYSICAL EXAM Constitutional: Yes: No Distress, Calm, Obese Eyes: Yes: WNL, Conjunctiva Clear HENT: Yes: WNL, Atraumatic, Normocephalic Neck: Yes: WNL, Supple, Trachea Midline Cardiovascular: Yes: WNL, Regular Rate and Rhythm Respiratory: Yes: WNL, Regular, CTA Bilaterally Gastrointestinal: Yes: Normal Bowel Sounds, Soft, Abdomen, Obese ...Rectal Exam: Yes: Deferred Genitourinary: Yes: WNL Breast(s): Yes: WNL Musculoskeletal: Yes: WNL Extremities: Yes: WNL Edema: Yes Edema: LLE: 1+, RLE: 1+ Peripheral Pulses WNL: Yes Peripheral Pulses: Left Radial: 2+, Right Radial: 2+, Left Doralis Pedis: 2+, Right Dorsalis Pedis: 2+, Left Femoral: 2+, Right Femoral: 2+ Integumentary: Yes: Other (jillian wraps to LE BL, no draiange) Wound/Incision: Yes: Dressing Dry and Intact Neurological: Yes: WNL, Alert, Oriented ...Motor Strength: WNL Psychiatric: Yes: WNL LABS Laboratory Results - last 24 hr 04/09/20 04/09/20 04/09/20 08:05 08:05 16:14 WBC 12.5 H RBC 4.58 Hgb 13.2 Hct 40.7 MCV 88.7 MCH 28.9 MCHC 32.6 RDW 13.8 Plt Count 308 MPV 7.3 L Absolute Neuts (auto) 9.0 H Neutrophils % 72.4 Lymphocytes % 17.8 Monocytes % 7.9 Eosinophils % 1.3 Basophils % 0.6 Nucleated RBC % 0 Sodium 139 Potassium 4.4 Chloride 104 Carbon Dioxide 28 Anion Gap 6 L BUN 9.9 Creatinine 0.8 Est GFR (CKD-EPI)AfAm 110.96 Est GFR (CKD-EPI)NonAf 95.74 POC Glucometer 127 Random Glucose 120 H Calcium 9.1 Magnesium 2.5 H Total Bilirubin 0.9 AST 32 ALT 47 Alkaline Phosphatase 57 Total Protein 7.6 Albumin 3.6 04/09/20 04/10/20 21:16 06:27 WBC RBC Hgb Hct MCV MCH MCHC RDW Plt Count MPV Absolute Neuts (auto) Neutrophils % Lymphocytes % Monocytes % Eosinophils % Basophils % Nucleated RBC % Sodium Potassium Chloride Carbon Dioxide Anion Gap BUN Creatinine Est GFR (CKD-EPI)AfAm Est GFR (CKD-EPI)NonAf POC Glucometer 137 115 Random Glucose Calcium Magnesium Total Bilirubin AST ALT Alkaline Phosphatase Total Protein Albumin HOSPITAL COURSE: Date of Admission:04/03/20 Date of Discharge: 04/10/20 Problem List - Problems (1) HTN (hypertension) Assessment/Plan: normotensive c/w lisinipril, coreg with hold parameters Code(s): I10 - ESSENTIAL (PRIMARY) HYPERTENSION (2) Prophylactic measure Assessment/Plan: FEN Fluids: adequate PO intake Nutrition: diabetic diet Dispo discharge to home Code(s): Z29.9 - ENCOUNTER FOR PROPHYLACTIC MEASURES, UNSPECIFIED (3) PVD (peripheral vascular disease) Assessment/Plan: follows with Dr Gonzalez in wound clinic has appointment on Apr 14 Code(s): I73.9 - PERIPHERAL VASCULAR DISEASE, UNSPECIFIED (4) Polysubstance (excluding opioids) dependence Assessment/Plan: on methadone maintenance Code(s): F19.20 - OTHER PSYCHOACTIVE SUBSTANCE DEPENDENCE, UNCOMPLICATED (5) Methadone maintenance therapy patient Assessment/Plan: c/w methadone 110mg Code(s): F11.20 - OPIOID DEPENDENCE, UNCOMPLICATED (6) COVID-19 ruled out Assessment/Plan: negative PCR Code(s): Z03.818 - ENCNTR FOR OBS FOR SUSP EXPSR TO OTH BIOLG AGENTS RULED OUT (7) Cellulitis Assessment/Plan: ccompleted zosyn wound with pseudomonas dc home on augmentin and levaquin Code(s): L03.90 - CELLULITIS, UNSPECIFIED Qualifiers: Site of cellulitis: extremity Site of cellulitis of extremity: lower extremity Laterality: left Qualified Code(s): L03.116 - Cellulitis of left lower limb (8) Diabetes Assessment/Plan: BGM AC/HS with novolog sliding scale diabetic diet resum oral hypoglycemic Code(s): E11.9 - TYPE 2 DIABETES MELLITUS WITHOUT COMPLICATIONS Stable for dc to home with oral abx Minutes to complete discharge: 40 Discharge Summary Problems reviewed: Yes Reason For Visit: CELLULITIS AND ABCESS OF L LOWER EXTREMITY Current Active Problems COVID-19 ruled out (Acute) Cellulitis (Acute) DVT prophylaxis (Acute) Diabetes (Acute) HTN (hypertension) (Acute) Methadone dependence (Acute) Methadone maintenance therapy patient (Acute) Morbid obesity (Acute) PVD (peripheral vascular disease) (Acute) Polysubstance (excluding opioids) dependence (Acute) Prophylactic measure (Acute) Prophylactic measure (Acute) Condition: Improved - Instructions Diet, Activity, Other Instructions: DISCHARGE YOUR VISIT You came to the hospital because had an infection in your foot caused by a bacteria called jose. Keep the area dry and clean with the bandages in place. Take the 2 antibiotics LEVAQUIN and AUGMENTIN x [address] Gonzalez in the wound clinic MEDICATIONS Please continue to take your home medications as prescribed. There was no changes DIET Continue your home diet ADDITIONAL CARE Please make an appointment to see your primary care provider, 2 week from today. ADDITIONAL INFORMATION Please call 911 or come directly to the emergency department if you experience unusual headache, vision change, shortness of breath, chest pain, numbness, tingling, loss of alertness/awareness, loss of function, unusual bleeding or any alarming symptoms. Thank you for allowing me to care for you. Carlos Suero, [facility], [facility] [phone] Referrals: Mumtaz Kinsey [Primary Care Provider] - Simon Gonzalez DO [Staff Physician] - 04/14/20 Disposition: HOME - Home Medications Comprehensive Discharge Medication List: Ambulatory Orders Alprazolam [Xanax] 0.5 mg PO PRN PRN 12/15/18 Citalopram Hydrobromide [Celexa -] 20 mg PO DAILY 12/15/18 Lisinopril 20 mg PO DAILY 12/15/18 Metformin HCl [Glucophage] 500 mg PO BID 12/15/18 Carvedilol [Coreg -] 12.5 mg PO BID 04/03/20 Furosemide [Lasix] 20 mg PO DAILY 04/03/20 Amox-Tr/K Cl [Augmentin 875-125mg Tablet -] 1 tab PO BID@0800,1730 #20 tablet 04/10/20 Insulin Sliding Scale [Novolog Vial Sliding Scale -] 1 vial SQ ACHS units 04/10/20 Methadone [Dolophine -] 110 mg PO DAILY@0600 tablet 07/30/20 levoFLOXacin [Levaquin -] 500 mg PO DAILY #10 tablet 04/10/20 Problem List - Problems (1) HTN (hypertension) Code(s): I10 - ESSENTIAL (PRIMARY) HYPERTENSION (2) Prophylactic measure Code(s): Z29.9 - ENCOUNTER FOR PROPHYLACTIC MEASURES, UNSPECIFIED (3) PVD (peripheral vascular disease) Code(s): I73.9 - PERIPHERAL VASCULAR DISEASE, UNSPECIFIED (4) Polysubstance (excluding opioids) dependence Code(s): F19.20 - OTHER PSYCHOACTIVE SUBSTANCE DEPENDENCE, UNCOMPLICATED (5) Methadone maintenance therapy patient Code(s): F11.20 - OPIOID DEPENDENCE, UNCOMPLICATED (6) COVID-19 ruled out Code(s): Z03.818 - ENCNTR FOR OBS FOR SUSP EXPSR TO OTH BIOLG AGENTS RULED OUT (7) Cellulitis Code(s): L03.90 - CELLULITIS, UNSPECIFIED Qualifiers: Site of cellulitis: extremity Site of cellulitis of extremity: lower extremity Laterality: left Qualified Code(s): L03.116 - Cellulitis of left lower limb (8) Diabetes Code(s): E11.9 - TYPE 2 DIABETES MELLITUS WITHOUT COMPLICATIONS This patient is new to me today: Yes Date on this admission: 04/10/20 Emergency Visit: No Critical Care patient: No - Discharge Referral [facility]erred to [facility] No
[2020-04-10 08:43] LABS: BASO % 0.9 % (0-2.0); EOS % 3.4 % (0-4.5); HEMATOCRIT 38.5 % (35.4-49); HEMOGLOBIN 12.7 GM/dL (11.7-16.9); LYMPH % 19.2 % (8-40); MCH 29.1 pg (25.7-33.7); MEAN CELL VOLUME 88.1 fl (80-96); MEAN PLT VOLUME 7.7 fl (7.5-11.1); NEUT % 68.5 % (42.8-82.8); PLATELET COUNT 313 K/MM3 (134-434); RBC 4.37 M/mm3 (4.00-5.60); RDW 13.5 % (11.9-15.9); WHITE BLOOD COUNT 10.8 K/mm3 (4.0-10.0)
[2020-04-10 08:58] LABS: ALBUMIN 3.5 g/dl (3.4-5.0); BILIRUBIN,TOTAL 0.5 mg/dL (0.2-1); BLOOD UREA NITROGEN 12.2 mg/dL (7-18); CALCIUM 9.1 mg/dL (8.5-10.1); CREATININE 0.7 mg/dL (0.55-1.3); MAGNESIUM 2.5 mg/dL (1.8-2.4); POTASSIUM 3.9 mmol/L (3.5-5.1); TOT PROT 7.4 g/dl (6.4-8.2)
[2020-04-10] MEDS: LISINOPRIL 20 MG TABLET (FP) PO SCH (09:25)
[2020-04-10] MEDS: CARVEDILOL 12.5 MG TABLET (FP) PO SCH (09:25)
--- NOTE | 2020-04-10 10:15 | PN ---
Progress Note, Physician History of Present Illness: stable no new issues - Current Medication List Current Medications: Active Medications Alprazolam (Xanax -) 0.5 mg PO DAILY PRN PRN Reason: ANXIETY Amoxicillin/Clavulanate Potassium (Augmentin - 875mg Tablet) 1 tab PO BID@0800,1730 [facility] Stop: 04/20/20 17:29 Carvedilol (Coreg -) 12.5 mg PO BID [facility] Last Admin: 04/10/20 09:25 Dose: 12.5 mg Documented by: Heparin Sodium (Porcine) (Heparin -) 5,000 unit SQ TID [facility] Last Admin: 04/10/20 06:29 Dose: 5,000 unit Documented by: Insulin Aspart (Novolog Vial Sliding Scale -) 1 vial SQ ACHS [facility]; Protocol Last Admin: 04/10/20 06:29 Dose: Not Given Documented by: Levofloxacin (Levaquin -) 500 mg PO DAILY@0600 [facility] Last Admin: 04/10/20 09:25 Dose: 500 mg Documented by: Lisinopril (Prinivil) 20 mg PO DAILY [facility] Last Admin: 04/10/20 09:25 Dose: 20 mg Documented by: Methadone HCl 80 mg/ Methadone (HCl 30 mg) 110 mg PO DAILY@0600 [facility] Last Admin: 04/10/20 06:28 Dose: 110 mg Documented by: - Objective Vital Signs: Vital Signs Temperature 98.3 F 04/10/20 06:00 Pulse Rate 52 L 04/10/20 06:00 Respiratory Rate 18 04/10/20 06:00 Blood Pressure 115/64 04/10/20 06:00 O2 Sat by Pulse Oximetry (%) 83 L 04/10/20 06:00 Constitutional: Yes: No Distress, Calm Cardiovascular: Yes: S1, S2 Respiratory: Yes: Regular, CTA Bilaterally Gastrointestinal: Yes: Normal Bowel Sounds, Soft Musculoskeletal: Yes: WNL Extremities: Yes: Erythema, Other Neurological: Yes: Alert, Oriented Psychiatric: Yes: Alert, Oriented Labs: CBC, BMP 04/10/20 07:30 04/10/20 07:30 INR, PTT INR 1.13 (0.83-1.09) H 04/03/20 14:20 Assessment/Plan 64 y/o M, pmh of HTN, DM, PVD, substance abuse/Heroin-Nasal on methadone, presents to the ED c/o of left leg pain, skin changes, erythema, clear purulent discharge of 2 weeks duration that started off as a mild skin changes and worsened since onset admitted for Cellulitis of the the LLE #Cellulitis of the the LLE #Substance abuse #PVD #HTN #DM #Obesity with LE edema plan can be changed to oral levaquin and augmentin for a week must come to wound care
[2020-04-10 10:50] VITALS: BP 156/88; PULSE 55; TEMP 98
[2020-04-10] MEDS ORDERED: AMOX TR/POT CLAV 875MG/125MG TABLETS (FP) PO SCH (17:30)
== END 2020-04-10 12:33 | disposition home or self-care (01) | DRG 383 ==
LOC: JER 13:25 → SUPCPDRO 13:25 → JERBED 16:28 → J6S 22:56
PROVIDERS: ADMIT Internal Medicine; ATTEND Nurse Practitioner Acute Care
DX: L03.116 Cellulitis of left lower limb (principal); E11.51 Type 2 diabetes mellitus with diabetic peripheral angiopathy without gangrene; F11.20 Opioid dependence, uncomplicated; E66.01 Morbid (severe) obesity due to excess calories; Z68.41 Body mass index [BMI] 40.0-44.9, adult; I10 Essential (primary) hypertension; E13.622 Other specified diabetes mellitus with other skin ulcer; L97.828 Non-pressure chronic ulcer of other part of left lower leg with other specified severity; B96.5 Pseudomonas (aeruginosa) (mallei) (pseudomallei) as the cause of diseases classified elsewhere; B95.1 Streptococcus, group B, as the cause of diseases classified elsewhere; B96.89 Other specified bacterial agents as the cause of diseases classified elsewhere
CPT/HCPCS: 36415; 71045-TC-FY; 73590-TC-LT-FY; 73610-TC-LT-FY; 73700-TC-RT; 80053; 82010; 82962; 83036; 83605; 83735; 84100; 85025; 85610; 85730; 87040; 87070; 87077; 87186; 87205; 93005; 93010; 97116-GP; 97162-GP; 99285-25; J0131; J1644; U0003